=== PATIENT | male | born 2000 | race Caucasian/White ===

== ENCOUNTER → 2019-05-24 15:40 | Outpatient (CLI) | payer OTHER, SELFPAY ==
--- NOTE | 2019-05-24 15:49 | XR_ITS ---
XR knee LT 3V HISTORY: ITS.REASON: LT KNEE PAIN ORDERING PHYSICIAN: Ayesha Mabry APRN PATIENT AGE: 18 years COMPARISON: None FINDINGS: No fracture or dislocation. No lytic or blastic change. Normal mineralization. No significant arthritic changes evident. Ununited ossification centers present at the tibial tuberosity as a normal variant IMPRESSION: No acute finding
--- NOTE | 2019-05-24 15:49 | XR_ITS ---
XR knee RT 3V HISTORY: ITS.REASON: RT KNEE PAIN ORDERING PHYSICIAN: Ayesha Mabry APRN PATIENT AGE: 18 years COMPARISON: None FINDINGS: No fracture or dislocation. No lytic or blastic change. Normal mineralization. No significant arthritic changes evident. Ununited ossification center noted at the tibial tuberosity is a normal variant. IMPRESSION: No acute finding
== END ==
PROVIDERS: PCP Nurse Practitioner Family; Visit Provider Nurse Practitioner Family
DX: M25.562 Pain in left knee (principal); M25.561 Pain in right knee
CPT/HCPCS: 73562

== ENCOUNTER → 2020-01-24 08:04 | Outpatient (CLI) | payer OTHER, SELFPAY ==
--- NOTE | 2020-01-24 08:08 | US_ITS ---
PROCEDURE: US ABDOMEN LIMITED CLINICAL INDICATION: RUQ PAIN Right upper quadrant pain with nausea and vomiting COMPARISON: RUQ US RUQ-(ABD LTD)1ORGAN/QUAD/FU from 05/03/2017 FINDINGS: PANCREAS: Unremarkable. No obvious mass or abnormal fluid collection. No ductal dilatation LIVER: No focal liver lesions demonstrated. Homogeneous echogenicity. No intrahepatic biliary ductal dilatation evident. There is appropriate direction of blood flow within a non dilated portal vein RIGHT KIDNEY: Unremarkable. Normal size and echogenicity. No hydronephrosis GALLBLADDER: No gallstones, gallbladder wall thickening, pericholecystic fluid, or biliary dilatation. IMPRESSION: Unremarkable limited abdominal ultrasound as detailed above disc Dictated by: Ramiro Keane MD 01/24/2020 09:40 Electronically signed by Ramiro Keane MD in [place] 01/24/2020 09:40
== END ==
PROVIDERS: PCP Physician Assistant; Visit Provider Physician Assistant
DX: R10.11 Right upper quadrant pain (principal)
CPT/HCPCS: 76705

== ENCOUNTER 2020-04-26 19:48 | Emergency (ER) | payer OTHER, SELFPAY ==
[2020-04-26 19:49] VITALS: BP 135/79; PULSE 85; RESP 16; TEMP 36.8; O2SAT 95; BMI 28.1
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
[2020-04-26 20:51] VITALS: BP 137/73; PULSE 81; RESP 16; TEMP 36.7; O2SAT 96
== END 2020-04-26 20:54 | disposition home or self-care (01) ==
PROVIDERS: Emergency Provider Emergency Medicine; PCP Nurse Practitioner Family
DX: H16.133 Photokeratitis, bilateral (principal); F17.210 Nicotine dependence, cigarettes, uncomplicated
CPT/HCPCS: 99281

== ENCOUNTER → 2020-10-17 16:07 | Outpatient (CLI) | payer OTHER, SELFPAY ==
[2020-10-17 17:03] LABS: Basophils # 0.1 K/mm3 (0-0.2); Basophils % 0.9 % (0.1-2.0); Eosinophils # 0.3 K/mm3 (0.0-0.4); Eosinophils % 2.2 % (0.1-12.0); Hematocrit 50.6 % (42.0-52.0); Hemoglobin 17.4 g/dL (14.1-18.0); Lymphocytes # 3.8 K/mm3 (0.7-4.5); Lymphocytes % 30.5 % (10-50); Mean Corpuscular HGB Conc 34.5 g/dL (31.8-35.4); Mean Corpuscular Hemoglobin 29.6 pg (27.0-31.2); Mean Corpuscular Volume 85.9 fl (80-94); Mean Platelet Volume 8.4 fl (7.4-10.4); Monocytes # 0.8 K/mm3 (0.1-1.0); Monocytes % 6.4 % (1.7-9.3); Neutrophils # 7.4 K/mm3 (1.8-7.8); Platelet Count 250 K/mm3 (142-424); Red Blood Count 5.89 M/mm3 (4.60-6.20); Red Cell Distribution Width 13.3 % (11.5-17.5); White Blood Count 12.3 K/mm3 (4.8-10.8)
[2020-10-19 09:58] LABS: Covid-19 Nasal PCR Sendout Lex NOT DETECTED
== END ==
PROVIDERS: PCP Family Medicine; Visit Provider Family Medicine
DX: Z03.818 Encounter for observation for suspected exposure to other biological agents ruled out (principal)
CPT/HCPCS: 36415; 85025; 87275; 87276; U0004

== ENCOUNTER 2021-03-07 13:18 | Emergency (ER) | payer OTHER, SELFPAY ==
[2021-03-07 13:49] VITALS: BP 139/88; PULSE 83; RESP 19; TEMP 37.1; O2SAT 98; BMI 31.9
--- NOTE | 2021-03-07 14:10 | HMH.EDUTC ---
[facility] [place] Disposition Clinical Impression: Viral upper respiratory illness Disposition: Home, Self-Care Condition on Discharge: Good Instructions: Sore Throat, DI for Cough -- Adult, DI for Viral Upper Respiratory Infection -- Adult Additional Instructions: *Monitor Temp, Over the counter Motrin or Tylenol as directed/as needed Tylenol every 4 hours and Motrin every 6 hours (as long as your family doctor has told you that you can take it) for fever or pain. and straight to ER if unable to lower temp less than 101.0 after medication given *Warm salt water gargles may help to soothe the throat *Throat Lozenges *Warm fluids like tea with honey may help to soothe the throat *Sleep elevated *Humidifier/Vaporizer Make sure that you are drinking plenty of water with Taking Mucinex Your throat swab was sent for culture. Those results are typically sent to your primary care. Be sure to follow up in 2-3 days with your family doctor/primary care physician if no improvement so they can review those result and treat if necessary. If you don?t have a primary care doctor, I recommend you get one but in the mean time, you will have to return to a walk in clinic Follow up IMMEDIATELY for new or worsening symptoms or no Noticeable improvement over the next 48-72 hours. 911 for difficulty breathing or swallowing You were tested for today for COVID19 your test result should be back in the next 24-48 hours, you may call to the [facility] to see if your test results are back in the next 48 hours [phone] [facility] hours are 9am-9pm You was given a handout with instructions for Self Quarantine and Self isolation for while you wait on test results and what to do if they are positive If you are positive the Health Dept will be contacting you also Prescriptions: guaiFENesin [Mucinex 600mg tablet] 1 - 2 tab PO Q12H PRN #20 tab.er.12h PRN Reason: Congestion Transmission Status: Received by [id number] Referrals: Noe Cordoba MD [Primary Care Provider] - As needed Forms: Work/School Release Time of Disposition: 14:22 Medical Decision Making - Aryan Inquiry Pt receiving controlled substance: No Aryan was queried for this patient: No Vital Signs: 03/07/21 13:49 03/07/21 14:32 Temperature 98.8 F 98.8 F Temperature Source Tympanic Tympanic Pulse Rate 83 Pulse Rate [Right Brachial] 83 Respiratory Rate 19 19 Blood Pressure 139/88 Blood Pressure [Right Arm] 139/88 Blood Pressure Mean [Right Arm] 105 Blood Pressure Source Automatic Cuff Blood Pressure Source [Right Arm] Automatic Cuff Blood Pressure Position Sitting Blood Pressure Position [Right Arm] Sitting 02 Sat by Pulse Oximetry 98 Oxygen Delivery Method Room Air Room Air - Lab Data Lab results reviewed: Yes: I reviewed the patient's lab results. Lab Results 03/07/21 13:28: Strep Scn Rapid Clinic Negative Orders (Tests/Meds): ORDERS Category Date Time Status Covid-19 Nasal PCR ([facility]) Routine Lab 03/07/21 14:30 Received Strep Screen Confirmation Stat Micro 03/07/21 13:28 Received [facility] UTC HPI - General Stated complaint: sore throat, stomach pain Time Seen by Provider: 03/07/21 14:11 Mode of Arrival: Ambulatory Source of Information: Patient Limitations: No Limitations Description of Symptoms (Recalled from Triage Doc. by RN): Sore throat, chest tight, headache since last night HEENT Symptoms (Recalled from RN notes): Yes Resp Symptoms (Recalled from RN notes): No Skin Symptoms (Recalled from RN notes): No MS Symptoms (Recalled from RN notes): No Functional Status (Recalled from RN notes): wnl - History of Present Illness Provider Complaint: Patient states that he has been having sore throat and congestion along with headache feels like congestion is starting to move into his chest area States that today he was still feeling bad so he came in to get checked States that at times he is blowing out greenish colored mucous - Related Data Previous Rx's
[2021-03-07 14:32] VITALS: BP 139/88; PULSE 83; RESP 19; TEMP 37.1; O2SAT 98
[2021-03-07 14:37] LABS: UTC Strep Screen (Rapid) Negative (Negative)
== END 2021-03-07 14:37 | disposition home or self-care (01) ==
PROVIDERS: Emergency Provider Nurse Practitioner; PCP Family Medicine
DX: J06.9 Acute upper respiratory infection, unspecified (principal); F17.210 Nicotine dependence, cigarettes, uncomplicated; Z20.822 Contact with and (suspected) exposure to COVID-19
CPT/HCPCS: 87880; 99202; G0463; U0003

== ENCOUNTER → 2021-03-14 13:29 | Outpatient (CLI) | payer OTHER, SELFPAY | PROVIDERS: PCP Family Medicine; Visit Provider Family Medicine | DX: G47.30 Sleep apnea, unspecified (principal); R40.0 Somnolence; R06.83 Snoring; E66.9 Obesity, unspecified | CPT/HCPCS: 95806 ==

== ENCOUNTER 2021-04-30 14:28 | Emergency (ER) | payer OTHER, SELFPAY ==
[2021-04-30 14:35] VITALS: BP 148/96; PULSE 82; RESP 19; TEMP 36.8; O2SAT 96; BMI 32.5
[2021-04-30 14:50] VITALS: BP 148/96; PULSE 82; RESP 19; TEMP 36.8; O2SAT 96
--- NOTE | 2021-04-30 15:15 | HMH.EDUTC ---
[facility] [place] Clinical Impression: Gastroenteritis Disposition: Home, Self-Care Condition on Discharge: Good Instructions: Viral Gastroenteritis, DI for Viral Gastroenteritis -- Adult Additional Instructions: Drink plenty of fluids. Take tylenol or ibuprofen for pain or fever. Take the medications as directed. Follow up with your regular doctor. GO TO THE ER FOR ANY WORSENING SYMPTOMS Prescriptions: Ondansetron [Zofran 4mg ODT] 4 mg PO Q8HP PRN #12 tab.rapdis PRN Reason: Nausea Transmission Status: Received by [id number] Referrals: Noe Cordoba MD [Primary Care Provider] - Forms: Work/School Release Time of Disposition: 15:18 Medical Decision Making - Medical Records Medical records reviewed: No: I reviewed the patient's medical records. - Aryan Inquiry Pt receiving controlled substance: No Vital Signs: 04/30/21 14:35 04/30/21 14:50 Temperature 98.3 F 98.3 F Temperature Source Oral Oral Pulse Rate 82 Pulse Rate [Left] 82 Respiratory Rate 19 19 Blood Pressure 148/96 H Blood Pressure [Right Arm] 148/96 H Blood Pressure Mean [Right Arm] 113 02 Sat by Pulse Oximetry 96 [facility] [place] HPI - General Stated complaint: vomiting,nausea Time Seen by Provider: 04/30/21 15:15 Mode of Arrival: Ambulatory Source of Information: Patient Limitations: No Limitations Description of Symptoms (Recalled from Triage Doc. by RN): Pt states that he has been vomiting, stomach ache, chills and weak since last night. HEENT Symptoms (Recalled from RN notes): No Resp Symptoms (Recalled from RN notes): No Skin Symptoms (Recalled from RN notes): No MS Symptoms (Recalled from RN notes): No Functional Status (Recalled from RN notes): wnl - History of Present Illness Provider Complaint: He has been having n/v/d since yesterday. He denies abdominal pain. - Related Data Previous Rx's Medication Instructions Recorded guaiFENesin [Mucinex 600mg tablet] 1 - 2 tab PO Q12H PRN #20 03/07/21 tab.er.12h Ondansetron [Zofran 4mg ODT] 4 mg PO Q8HP PRN #12 tab.rapdis 04/30/21 Allergies Allergy/AdvReac Type Severity Reaction Status Date / Time No Known Allergies Allergy Verified 04/30/21 14:48 - Worker's Comp Is this a Worker's Comp case?: No [facility] History - Hepatitis A Screen Drug use history?: No High risk sexual behaviors?: No History of sexually transmitted infection?: No Currently employed?: No Childcare worker?: No Do you have indoor plumbing?: Yes Do you have electricity?: Yes Attestation statement:: This patient has been screened for Hepatitis A risk factors. I have reviewed the patient's past medical history: Yes Medical History: Denies:: Diabetes Mellitus Type 1, Diabetes Mellitus Type 2 Other Surgeries: Yes: No Previous Surgery Amputation: No Fractures: No - Social History Smoking Status: Current every day smoker Tobacco Type: cigarettes, smokeless tobacco # Packs/Day (cigarettes): 1 Alcohol Intake: never Alcohol Intake Frequency:: holidays/special occasions only Substance Use Type: denies use Occupational Status: other Housing: house Household Members: family Family Hx:: Non-contributory ROS Obtained: Yes All systems reviewed & no additional complaints - Constitutional Constitutional: Reports system reviewed and no additional complaints, except as docu - Eyes Eyes: Reports system reviewed and no additional complaints, except as docu - ENT Ears, Nose, Mouth, and Throat: Reports system reviewed and no additional complaints, except as docu - Cardiovascular Cardiovascular: Reports system reviewed and no additional complaints, except as docu - Respiratory Respiratory: Reports system reviewed and no additional complaints, except as docu - Gastrointestinal Gastrointestingal: Reports: system reviewed and no additional complaints, except as docu Physical Exam - General General appearance: alert, in no apparent distress - Head Head
== END 2021-04-30 15:19 | disposition home or self-care (01) ==
PROVIDERS: Emergency Provider Nurse Practitioner Family; PCP Family Medicine
DX: K52.9 Noninfective gastroenteritis and colitis, unspecified (principal)
CPT/HCPCS: 99202; G0463; U0003

== ENCOUNTER 2021-07-08 17:27 | Emergency (ER) | payer OTHER, SELFPAY ==
[2021-07-08 17:30] VITALS: BP 150/93; PULSE 113; RESP 18; TEMP 36.8; O2SAT 98; BMI 33.4
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
[2021-07-08 18:50] VITALS: BP 147/99; PULSE 98; RESP 18; TEMP 36.8; O2SAT 98
== END 2021-07-08 18:57 | disposition home or self-care (01) ==
PROVIDERS: Emergency Provider Emergency Medicine; PCP Family Medicine
DX: S39.012A Strain of muscle, fascia and tendon of lower back, initial encounter (principal); V86.95XA Unspecified occupant of 3- or 4- wheeled all-terrain vehicle (ATV) injured in nontraffic accident, initial encounter
CPT/HCPCS: 72131; 99282

== ENCOUNTER 2021-07-20 10:12 | Emergency (ER) | payer OTHER, SELFPAY ==
[2021-07-20 11:30] VITALS: BP 161/86; PULSE 72; RESP 20; TEMP 36.8; O2SAT 98; BMI 32.6
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
[2021-07-20 11:51] VITALS: BP 161/86; PULSE 72; RESP 20; TEMP 36.8; O2SAT 98
== END 2021-07-20 11:54 | disposition home or self-care (01) ==
PROVIDERS: Emergency Provider Nurse Practitioner Family; PCP Family Medicine
DX: U07.1 COVID-19 (principal); F17.210 Nicotine dependence, cigarettes, uncomplicated
CPT/HCPCS: 99202; G0463; U0003

== ENCOUNTER 2021-08-04 10:51 | Emergency (ER) | payer OTHER, SELFPAY ==
[2021-08-04 11:10] VITALS: BP 143/91; PULSE 94; RESP 18; TEMP 36.8; O2SAT 98; BMI 32.6
--- NOTE | 2021-08-04 12:01 | HMH.EDUTC ---
[facility] [place] Clinical Impression: Viral syndrome, Exposure to COVID-19 virus Disposition: Home, Self-Care Condition on Discharge: Good Instructions: DI for COVID-19 (Suspected or Confirmed ), Preventing the Spread of Coronavirus Discharge Instructions Additional Instructions: Drink plenty of fluids. Take tylenol or ibuprofen for pain or fever. Take the medications as directed. Follow up with your regular doctor. GO TO THE ER FOR ANY WORSENING SYMPTOMS Quarantine until you know the results of your covid-19 test. If it is positive, the health department should call you and give you further instructions about your length of Quarantine and other things. Notify your school or workplace of your results and follow their instructions regarding return to work/school. Prescriptions: Brompheniramine/Pseudoephed/Dm [Bromfed Dm Cough Syrup] 5 ml PO Q6HP PRN #240 ml PRN Reason: Cough Transmission Status: Received by [facility] Ondansetron [Zofran 4mg ODT] 4 mg PO DAILYP PRN #12 tab PRN Reason: Nausea Transmission Status: Received by [facility] Referrals: Noe Cordoba MD [Primary Care Provider] - Forms: Work/School Release Time of Disposition: 12:09 Medical Decision Making - Medical Records Medical records reviewed: No: I reviewed the patient's medical records. - Aryan Inquiry Pt receiving controlled substance: No Vital Signs: 08/04/21 11:10 08/04/21 12:27 Temperature 98.3 F 98.3 F Temperature Source Oral Oral Pulse Rate 94 H Pulse Rate [Apical] 94 H Respiratory Rate 18 18 Blood Pressure 143/91 H Blood Pressure [Right Arm] 143/91 H Blood Pressure Mean [Right Arm] 108 Blood Pressure Source Automatic Cuff Blood Pressure Source [Right Arm] Automatic Cuff Blood Pressure Position Sitting Blood Pressure Position [Right Arm] Sitting 02 Sat by Pulse Oximetry 98 Oxygen Delivery Method Room Air Room Air [facility] [place] - General Stated complaint: sore throat soz, headache, congestion Time Seen by Provider: 08/04/21 12:02 Mode of Arrival: Ambulatory Source of Information: Patient Limitations: No Limitations Description of Symptoms (Recalled from Triage Doc. by RN): covid test, headache, cough, fatigue, soa HEENT Symptoms (Recalled from RN notes): No Resp Symptoms (Recalled from RN notes): Yes Skin Symptoms (Recalled from RN notes): No MS Symptoms (Recalled from RN notes): No Functional Status (Recalled from RN notes): na - History of Present Illness Provider Complaint: He states that for the past 3 days he has felt bad. He has had a cough, chest congestion, sore scratchy sore throat, and he feels bad. He has not been vaccinated against covid-19. - Related Data Previous Rx's Medication Instructions Recorded guaiFENesin [Mucinex 600mg tablet] 1 - 2 tab PO Q12H PRN #20 03/07/21 tab.er.12h Ondansetron [Zofran 4mg ODT] 4 mg PO Q8HP PRN #12 tab.rapdis 04/30/21 Ibuprofen [Ibuprofen 800mg 800 mg PO TIDP PRN #20 tab 07/08/21 Tablet] Brompheniramine/Pseudoephed/Dm 5 ml PO Q6HP PRN #240 ml 08/04/21 [Bromfed Dm Cough Syrup] Ondansetron [Zofran 4mg ODT] 4 mg PO DAILYP PRN #12 tab 08/04/21 Allergies Allergy/AdvReac Type Severity Reaction Status Date / Time No Known Allergies Allergy Verified 04/30/21 14:48 - Worker's Comp Is this a Worker's Comp case?: No [facility] History - Hepatitis A Screen Drug use history?: No High risk sexual behaviors?: No History of sexually transmitted infection?: No Currently employed?: No Childcare worker?: No Do you have indoor plumbing?: Yes Do you have electricity?: Yes Attestation statement:: This patient has been screened for Hepatitis A risk factors. I have reviewed the patient's past medical history: Yes Medical History: Denies:: Diabetes Mellitus Type 1, Diabetes Mellitus Type 2 Other Surgeries: Yes: No Previous Surgery Amputation: No Fractures: No - Social History Smoking Statu
[2021-08-04 12:27] VITALS: BP 143/91; PULSE 94; RESP 18; TEMP 36.8; O2SAT 98
== END 2021-08-04 12:28 | disposition home or self-care (01) ==
PROVIDERS: Emergency Provider Nurse Practitioner Family; PCP Family Medicine
DX: B34.9 Viral infection, unspecified (principal); Z20.822 Contact with and (suspected) exposure to COVID-19
CPT/HCPCS: 99202; C9803; G0463; U0003; U0005

== ENCOUNTER 2023-12-19 14:01 | Outpatient (CLI) | payer BC, SELFPAY ==
--- NOTE | 2023-12-19 14:07 | XR_ITS ---
FINAL REPORT CLINICAL HISTORY: chronic RT KNEE PAIN, old softball injury FINDINGS: Right knee Three views were obtained. There is no acute fracture or dislocation. The joint spaces appear normal. No joint effusion is identified. No soft tissue abnormality is identified. IMPRESSION: No acute process. Reviewed, Interpreted and Dictated by Noe Navarro MD Transcribed by Brianne Quigley Authenticated and . [facility]
== END 2023-12-19 23:59 ==
LOC: RAD 14:03
PROVIDERS: PCP Physician Assistant; Visit Provider Physician Assistant
DX: M25.561 Pain in right knee (principal)
CPT/HCPCS: 73562

== ENCOUNTER 2024-02-10 16:47 | Outpatient (POV) | payer BC, SELFPAY | END 2024-02-10 23:59 | disposition home or self-care (01) | LOC: SC 16:48 | PROVIDERS: PCP Physician Assistant; Visit Provider Dermatology | DX: Z00.00 Encounter for general adult medical examination without abnormal findings (principal) ==

== ENCOUNTER 2024-12-29 19:46 | Emergency (ER) | payer BC, SELFPAY ==
[2024-12-29 19:52] VITALS: BP 164/100; PULSE 80; RESP 16; TEMP 36.8; O2SAT 98; BMI 37.5
[2024-12-29 20:20] LABS: Microscopic, Urine URINE MICROSCOPIC (MICROSCOPIC)
[2024-12-29 20:29] LABS: Appearance,Urine CLEAR (Clear); Bilirubin,Urine Negative (Negative); Blood, Urine Negative (Negative); Color,Urine YELLOW (Yellow); Glucose,Urine (UA) Negative (Negative); Ketones,Urine Negative (Negative); Leukocyte Esterase,Urine Negative (Negative); Nitrate,Urine Negative (Negative); PH,Urine 6.5 (5.0-8.5); Protein,Urine Negative (Negative); Specific Gravity, Urine 1.025 (1.005-1.030); Urobilinogen,Urine 0.2 EU/dl (0.2)
--- NOTE | 2024-12-29 20:29 | ED_ITS ---
Discharge Plan Disposition Patient Disposition: Home, Self-Care Chief Complaint: Urogenital-Male Prescriptions Prescriptions: No Action No Known Home Medications Referrals Follow up/Referrals: Tho Bailey MD [Primary Care Provider] - See instructions Activity Restrictions/Add. Instructions Additional Instructions/Restrictions: Follow-up with your urologist regarding this visit to the emergency department. Talk to them about intervention regarding spermatocele and need for decompressing cyst given amount of pain likely due to pressure. Call your family doctor to establish care for this visit to the emergency department and schedule follow-up within 48 hours to ensure improvement. If you have any worsening of your condition or any other concerning signs or symptoms, return to the emergency department or your primary care doctor for further evaluation. Clinical Impressions Clinical Impression: Spermatocele, Right testicular pain Instructions Patient Instructions: DI for Urinary Tract Infection (UTI), DI for Urinary Tract Infection in Children Print Language Print Language: Maori Discharge ED Provider: José Maneul [facility] HPI General Chief complaint: Urogenital-Male Stated complaint: right leg and groin painful and swollen Time Seen by Provider: 12/29/24 20:00 Mode of Arrival: Ambulatory Source of Information: Patient Limitations: No Limitations Description of Symptoms (Recalled from ER Triage Doc. by RN): Pt presents for evaluation of right scrotum pain x 1 month. History of Present Illness HPI narrative: Please note that above description of symptoms, in this electronic medical record under categorization of recalled from ER triage doctor by RN are reflective of an initial nursing assessment, however, is not reflective of my full history and physical exam that was personally taken and clarified. Consequentially, this preceding description of symptoms, which may include the patient's categorized chief complaint in the EMR, do not reflect my personal clinical impression, and the ultimate description of history of present illness and patient stated complaints should be deferred to this section of the note. Unless stated otherwise or congruent with this section of the note, additional signs, symptoms, or incongruence should be interpreted as inaccurate with my clinical impression. Related Data Home Medications ?Medication ?Instructions ?Recorded ?Confirmed No Known Home Medications 12/29/24 12/29/24 Allergies Allergy/AdvReac Type Severity Reaction Status Date / Time No Known Allergies Allergy Verified 04/30/21 14:48 [facility] Disclaimer: The information contained in this section may have been updated after the patient was seen, as this information can be updated by other users. Social History Smoking Status: Current every day smoker tobacco type: cigarettes packs per day: 1 and smokeless tobacco second hand exposure: No alcohol intake: never substance use type: denies use current occupational status: other Travel in the last 8 weeks: None household members: family housing: house Have you lived/traveled outside US in past 30 days?: No Contact w/someone who lives/traveled outside US past 30 days?: No Exposure to someone with infectious disease in past 14 days?: No Do you have a fever (greater than 100.4 F or 38 C)?: No Have you tested positive for COVID-19: No Exposed to someone with COVID-19 in past 14 days?: No Do you have a sore throat?: No Do you have a cough?: No Do you have any weakness?: No Do you have any diarrhea?: No Are you experiencing any unusual bleeding?: No Do you have any muscle aches/pain?: No Do you have any abdominal pain?: No Are you experiencing loss of taste or smell?: No Other Medical History Have you received the Flu Vaccine for this season: No Have you received the Pneumonia Vaccine: No ROS Obtained: Yes All systems reviewed & no additional complaints except as documented Physical Exam General General appearance: alert Head Head exam: atraumatic and normocephalic Eye Eye exam: Present normal appearance, PERRL and EOMI Neck Neck exam: Present normal inspection, full ROM and trachea midline Respiratory Respiratory exam: Absent respiratory distress, wheezes, stridor, accessory muscle use or prolonged expiratory phase Cardiovascular Cardiovascular exam: Present other (Pulses equal symmetric in upper and lower extremities) Abdominal Exam Abdominal exam: Present soft; Absent distention, tenderness or pulsatile mass Extremities Exam Extremities exam: Absent edema Neurological Exam Neurological exam: Present alert, oriented X3 and CN II-XII intact; Absent motor sensory deficit Skin Skin exam: Present warm and dry; Absent diaphoresis or erythema Medical Decision Making Medical Records Medical records reviewed: Yes I reviewed the patient's medical records. Screening: Per USPSTF and CDC recommendations, given the prevalence of disease in our region, it is our hospital?s policy to screen for HIV and viral Hepatitis for all patients aged 18 and over and those with ongoing risk factors. Aryan Inquiry Pt receiving controlled substance: No Aryan was queried for this patient: No Vital Signs: 12/29/24 19:52 12/29/24 20:30 Temperature 98.3 F Temperature Source Oral Pulse Rate 83 Pulse Rate [Right] 80 Respiratory Rate 16 Blood Pressure 134/85 Blood Pressure [Right Arm] 164/100 H Blood Pressure Mean [Right Arm] 121 Blood Pressure Source [Right Arm] Automatic Cuff Blood Pressure Position [Right Arm] Sitting 02 Sat by Pulse Oximetry 98 98 Oxygen Delivery Method Room Air Room Air Lab Data Lab Results 12/29/24 19:58: Urine Color Yellow, Urine Appearance Clear, Urine pH 6.5, Ur Specific [place] 1.025, Urine Protein Negative, Urine Glucose (UA) Negative, Urine Ketones Negative, Urine Blood Negative, Urine Nitrate Negative, Urine Bilirubin Negative, Urine Urobilinogen 0.2, Ur Leukocyte Esterase Negative, Urine RBC Occasional, Urine WBC Occasional, Urine Mucus 1+ Orders (Tests/Meds): ORDERS Category Date Time Status POCUS Point of Care (ER Only) Stat Exams 12/29/24 20:25 Ordered Urinalysis and Microscopic Stat Lab 12/29/24 19:58 Completed Medical Decision Narrative: 24-year-old male presenting with right testicular pain. Patient had vasectomy in June 2024. States that he has been having pain since that time. Went and saw the urologist last week states that he was told I have a cyst and to use heating pads, Tylenol and Motrin. Patient states that pain has not gotten any better, so came in for further evaluation. No dysuria, hematuria, acute pain, but there is some swelling. Pain is constant, radiates up into his abdomen near his umbilicus. History was obtained via conversation with patient and . On arrival, patient hemodynamically stable, alert, oriented x4, appropriate, GCS 15, moving all extremities spontaneously, pupils equal and reactive to light. Full physical exam performed and significant for uncomfortable appearing male who is in no acute distress. Right testicle is mildly tender, he does have large cystic structure posterior to his right testicle. Reflex intact, right testicle is not tender in itself. No overlying scrotal changes. No evidence of hernia. Differential includes spermatocele, hydrocele, abscess, orchitis, testicular abscess, urinary tract infection, among others. Patient was given Tylenol and Motrin for symptomatic management and correction of underlying abnormalities. Workup independently interpreted and significant for no infectious urine. Bedside jzqon-et-orch ultrasound was performed, patient has normal bilateral testicles with normal blood flow. He does have 2 to 2.5 cm cystic structure posterior to his right testicle consistent with likely hydrocele. Quiet, anechoic, no evidence of surrounding fat stranding. Small hydrocele on the right as well. Given patient presentation, workup, history, this most likely represents spermatocele. Because patient at baseline without signs or symptoms of clinical decompensation, deemed appropriate for discharge. Results were relayed to patient who voiced understanding and were agreeable to outpatient management and follow up. I discussed my clinical impression with patient and answered all questions. At this time, the evidence for any other entities in the differential is insufficient to warrant any further testing or ED observation. This was explained as well. Advisory was given that persistent or worsening symptoms require further evaluation. I confirmed the understanding of this discussion. [employer] disclaimer Much of this encounter note is an electronic equipment operating engineer spoken language to printed text. Electronic equipment operating engineer of the spoken language may permit errors. Although I have reviewed the note, some errors may still exist. Procedures Limited Ultrasound Indication:: Limited testicular ultrasound Indication: Testicular pain, scrotal pain Identified structures: Location: Bilateral testicles Findings: Normal bilateral testicles with normal flow. Patient does have small hydrocele on the right. He also has large spermatocele posterior to the right testicle just over 2 cm. Impression: Normal testicular ultrasound Images were saved to permanent archive The study was technically adequate Testicular/scrotal CPT Codes: 77649-70 This study was performed by me, and I personally interpreted all images/videos. Based on my clinical judgement, these images were adequate and did not necessitate further imaging. Critical Care Critical Care Time Critical Care Time: No
[2024-12-29 20:30] VITALS: BP 134/85; PULSE 83; O2SAT 98
[2024-12-29 20:48] LABS: Mucus,Urine 1+ /lpf; RBC,Urine Occasional #/hpf (0-3); WBC,Urine Occasional #/hpf (0-3)
[2024-12-29] MEDS: ACETAMINOPHEN 500MG TAB 1000 MG PO (21:15)
[2024-12-29] MEDS: IBUPROFEN 600 MG TABLET PO (21:16)
[2024-12-29 21:19] VITALS: BP 124/78; PULSE 72; RESP 16; TEMP 36.6; O2SAT 98
== END 2024-12-29 21:20 | disposition home or self-care (01) ==
PROVIDERS: Emergency Provider Emergency Medicine; PCP Internal Medicine Adolescent Medicine
DX: N50.811 Right testicular pain (principal); N43.40 Spermatocele of epididymis, unspecified; R22.31 Localized swelling, mass and lump, right upper limb; N50.89 Other specified disorders of the male genital organs; F17.210 Nicotine dependence, cigarettes, uncomplicated
CPT/HCPCS: 81001; 99283

== ENCOUNTER 2025-02-26 01:33 | Emergency (ER) | payer BC, SELFPAY ==
--- NOTE | 2025-02-26 01:35 | ECG_ITS ---
APPROVED REPORT Exam: Resting ECG HR:84 bpm ECG Measurements Heart Rate 84 AXES OK 157 P 52 QRSd 86 QRS 15 QT 350 T 9 QTc 391 Conclusion SINUS RHYTHM WITH SINUS ARRHYTHMIA LOW QRS VOLTAGE IN PRECORDIAL LEADS [QRS DEFLECTION < 1.0 mV IN CHEST LEADS] BORDERLINE ECG INTERPRETATION BASED ON A DEFAULT AGE OF 40 YEARS UNCONFIRMED REPORT Electronically signed by : JAVIER BERNAL, 02/27/2025 03:39:25
[2025-02-26 01:38] VITALS: BP 134/101; PULSE 102; RESP 16; TEMP 36.6; O2SAT 97; BMI 37.5
--- NOTE | 2025-02-26 01:38 | XR_ITS ---
PROCEDURE INFORMATION: Exam: XR Chest Exam date and time: 02/26/2025 1:54 AM Age: 24 years old Clinical indication: Sternal or substernal pain; Additional info: Chest pain TECHNIQUE: Imaging protocol: Radiologic exam of the chest. Views: 1 view. COMPARISON: CT ABDOMEN PELVIS W CON 08/17/2019 5:48 PM FINDINGS: Lungs: Unremarkable. No consolidation. Pleural spaces: Unremarkable. No pleural effusion. No pneumothorax. Heart/Mediastinum: Unremarkable. No cardiomegaly. Vasculature: Unremarkable. Bones/joints: Unremarkable. IMPRESSION: No acute findings.
--- NOTE | 2025-02-26 01:40 | ED_ITS ---
Discharge Plan Disposition Patient Disposition: Home, Self-Care Prescriptions Prescriptions: No Action No Known Home Medications Referrals Follow up/Referrals: Provider,Referral, MD [Primary Care Provider] - See instructions Activity Restrictions/Add. Instructions Additional Instructions/Restrictions: Please follow-up with your primary care provider. Please return to the emergency department if you develop any new or worsening symptoms or become concerned for your health. Clinical Impressions Clinical Impression: Chest pain Print Language Print Language: Slovenian Discharge ED Provider: Pastor Man General Adult HPI General Chief complaint: Chest Pain Stated complaint: chest pain Time Seen by Provider: 02/26/25 01:35 History of Present Illness HPI narrative: 24-year-old male with history of hypertension presents for chest pain and hypertension. Reports chest pain is centrally located, sharp, worse with movement. Denies any shortness of breath cough fever or recent illness. Denies any abdominal pain. Reports he has had episodes like this in the past. He is concerned that his blood pressure was high at home, up to the 160s systolic. He is on lisinopril for blood pressure. Denies any history of blood clots, no recent surgery or immobilization. Related Data Home Medications ?Medication ?Instructions ?Recorded ?Confirmed No Known Home Medications 12/29/24 12/29/24 Allergies Allergy/AdvReac Type Severity Reaction Status Date / Time No Known Allergies Allergy Verified 04/30/21 14:48 [facility] Disclaimer: The information contained in this section may have been updated after the patient was seen, as this information can be updated by other users. Social History Smoking Status: Current every day smoker tobacco type: cigarettes packs per day: 1 and smokeless tobacco second hand exposure: No alcohol intake: never substance use type: denies use current occupational status: other Travel in the last 8 weeks: None household members: family housing: house Other Medical History Have you received the Flu Vaccine for this season: No Have you received the Pneumonia Vaccine: No ROS Obtained: Yes All systems reviewed & no additional complaints except as documented Physical Exam General General appearance: alert and in no apparent distress Head Head exam: atraumatic and normocephalic Eye Eye exam: Present normal appearance, PERRL and EOMI ENT ENT exam: Present normal oropharynx and normal external ear exam Neck Neck exam: Present normal inspection and full ROM Chest Chest inspection: Present normal inspection and symmetric chest wall rise; Absent tenderness Respiratory Respiratory exam: Present normal lung sounds bilaterally; Absent respiratory distress Cardiovascular Cardiovascular exam: Present regular rate and normal rhythm Abdominal Exam Abdominal exam: Present soft; Absent distention, tenderness or guarding Extremities Exam Extremities exam: Present normal inspection; Absent edema or joint swelling Back Exam Back exam: Present normal inspection; Absent tenderness Neurological Exam Neurological exam: Present alert and oriented X3; Absent motor sensory deficit Psychiatric Psychiatric exam: Present normal affect and normal mood Skin Skin exam: Present warm, dry and normal color Lymphatic Lymphatic Findings: no adenopathy Medical Decision Making Medical Records Medical records reviewed: Yes I reviewed the patient's medical records. Screening: Per USPSTF and CDC recommendations, given the prevalence of disease in our region, it is our hospital?s policy to screen for HIV and viral Hepatitis for all patients aged 18 and over and those with ongoing risk factors. Aryan Inquiry Pt receiving controlled substance: No Aryan was queried for this patient: No Vital Signs: 02/26/25 01:38 02/26/25 01:43 Temperature 97.9 F Temperature Source Oral Pulse Rate 84 Pulse Rate [Right Radial] 102 H Respiratory Rate 16 Blood Pressure [Right Arm] 134/101 H Blood Pressure Mean [Right Arm] 112 Blood Pressure Source [Right Arm] Automatic Cuff Blood Pressure Position [Right Arm] Supine 02 Sat by Pulse Oximetry 97 Oxygen Delivery Method Room Air Lab Data Lab results reviewed: Yes I reviewed the patient's lab results. Lab Results 02/26/25 01:35: WBC 13.8 H, RBC 5.74, Hgb 17.7, Hct 50.7, MCV 88.3, MCH 30.8, MCHC 34.9, RDW 13.4, Plt Count 273, MPV 10.3, Neut % (Auto) 62.7, Lymph % (Auto) 28.3, [place] % (Auto) 7.1, Eos % (Auto) 0.7, Baso % (Auto) 0.5, Neut # (Auto) 8.7 H, Lymph # (Auto) 3.9, [place] # (Auto) 1.0, Eos # (Auto) 0.1, Baso # (Auto) 0.1, Sodium 141, Potassium 3.6, Chloride 100, Carbon Dioxide 31 H, Anion Gap 13.6, BUN 12, Creatinine 0.90, Estimated Creat Clear 192, Estimated GFR 102, Est GFR ( Amer) 123, Glucose 106 H, Calcium 9.3, Total Bilirubin 0.7, AST 50, ALT 106 H, Alkaline Phosphatase 91, Troponin I 0.02, Total Protein 8.4 H, Albumin 4.7, Globulin 3.7 H, Albumin/Globulin Ratio 1.3 02/26/25 01:35 02/26/25 01:35 Orders (Tests/Meds): ED MEDICATIONS Discontinued Medications Generic Name Dose Route Start Last Admin Trade Name Freq PRN Reason Stop Dose Admin Acetaminophen 1,000 mg 02/26/25 01:38 02/26/25 01:45 Acetaminophen 500mg Tab PO 02/26/25 01:39 1,000 mg ONCE ONE Administration Belladonna Alkaloids 60 ml 02/26/25 01:38 02/26/25 01:45 Belladonna Alkaloids 60 Ml Ml PO 02/26/25 01:39 60 ml ONCE ONE Administration Ketorolac Tromethamine 30 mg 02/26/25 01:38 02/26/25 01:45 Ketorolac 30mg/Ml Vial IV 02/26/25 01:39 30 mg ONCE ONE Administration ORDERS Category Date Time Status CXR --portable [XR chest portable] Stat Exams 02/26/25 01:38 Taken CBC w/Auto Diff [Complete Blood Count Auto Diff] Stat Lab 02/26/25 01:35 Completed CMP [Comprehensive Metabolic Panel] Stat Lab 02/26/25 01:35 Completed Troponin I Q3H Lab 02/26/25 01:35 Completed Troponin I Q3H Lab 02/26/25 04:45 Ordered ECG Data Tracing #1: I reviewed this ECG and interpreted as documented below: Normal sinus rhythm, rate of 84, no concerning ischemic changes, no evidence of arrhythmia. ECG initial impression date: 02/26/25 ECG initial impression time: 01:35 HEART Score History (anamnesis): Slightly suspicious ECG: Normal Age: <45 years Risk factors: 1-2 risk factors Troponin: </= normal limit HEART Score: 1 Medical Decision Narrative: 24-year-old male history of hypertension presents for a few hours of central chest pain. History was obtained via interactive discussion with patient, family, chart review. On arrival, patient is [afebrile, hemodynamically stable, satting appropriately, alert, oriented x4, GCS 15], moving all extremities spontaneously. Full physical exam performed and significant for clear lungs bilaterally. EKG unremarkable. Differential includes but is not limited to musculoskeletal chest pain, GERD, pleurisy, PE, ACS. Low concern for ACS given age and normal EKG. Patient is PERC negative and does not require D-dimer to rule out PE.. Patient was given Tylenol, GI cocktail, Toradol for symptomatic management and correction of underlying abnormalities. Workup initiated including CBC CMP troponin chest x-ray EKG. On re-evaluation, patient is chest pain-free after GI cocktail. Laboratory workup independently interpreted by me and significant for mild leukocytosis, negative initial troponin, no significant electrolyte derangement. Imaging independently interpreted by me and significant for clear lungs bilaterally without focal opacity. See radiology read for full review of final results. EKG independently interpreted by me and significant for normal sinus rhythm. Second opponent was considered, but deemed unnecessary due to no significant concern for ACS given history and exam.. Given patient history, exam and workup, patient's presentation most likely represents noncardiac chest pain. Patient discharged in stable condition with return precautions.. Procedures Risk/Benefits of Procedure(s) Were Explained: Yes Critical Care Critical Care Time Critical Care Time: No
[2025-02-26 01:43] VITALS: PULSE 84
[2025-02-26] MEDS: ACETAMINOPHEN 500MG TAB 1000 MG PO (01:45)
[2025-02-26] MEDS: BELLADONNA ALKALOIDS 60 ML ML PO (01:45)
[2025-02-26] MEDS: KETOROLAC 30MG/ML VIAL 30 MG IV (01:45)
[2025-02-26 01:47] LABS: Basophils # 0.1 K/mm3 (0-0.2); Basophils % 0.5 % (0.1-2.0); Eosinophils # 0.1 K/mm3 (0.0-0.4); Eosinophils % 0.7 % (0.1-12.0); Hematocrit 50.7 % (42.0-52.0); Hemoglobin 17.7 g/dL (14.1-18.0); Lymphocytes # 3.9 K/mm3 (0.7-4.5); Lymphocytes % 28.3 % (10-50); Mean Corpuscular HGB Conc 34.9 g/dL (31.8-35.4); Mean Corpuscular Hemoglobin 30.8 pg (27.0-31.2); Mean Corpuscular Volume 88.3 fl (80-94); Mean Platelet Volume 10.3 fl (7.4-10.4); Monocytes % 7.1 % (1.7-9.3); Neutrophils # 8.7 K/mm3 (1.8-7.8); Neutrophils % 62.7 % (37.0-80.0); Nucleated Red Blood Cells # 0 10^3/uL; Nucleated Red Blood Cells % 0 %; Platelet Count 273 K/mm3 (142-424); Red Blood Count 5.74 M/mm3 (4.60-6.20); Red Cell Distribution Width 13.4 % (11.5-17.5); Red Cell Distribution Width-SD 43.1 fL; White Blood Count 13.8 K/mm3 (4.8-10.8)
[2025-02-26 01:57] LABS: Alanine Aminotransferase 106 U/L (12-78); Albumin Level 4.7 g/dl (3.5-5.0); Albumin/Globulin Ratio 1.3 (1.1-1.8); Alkaline Phosphatase 91 U/L (38-126); Anion Gap 13.6 mEq/L (5-15); Aspartate Amino Transferase 50 U/L (17-59); Bilirubin,Total 0.7 mg/dl (0.2-1.3); Blood Urea Nitrogen 12 mg/dl (9-20); Calcium 9.3 mg/dl (8.4-10.2); Carbon Dioxide 31 mmol/L (22.0-30.0); Chloride 100 mmol/L (98-107); Creatinine Clearance Estimated 192 mL/min (50-200); Estimated Glomerular Filt Rate 102 ml/min (>60); GFR (African American) 123 ML/MIN (>60); Globulin 3.7 g/dL (1.3-3.2); Glucose 106 mg/dl (74-100); Potassium 3.6 mmoL/L (3.5-5.1); Sodium 141 mmol/L (136-145); Total Protein,Serum 8.4 g/dl (6.3-8.2)
[2025-02-26 02:09] LABS: Troponin I 0.02 ng/ml (0.00-0.034)
[2025-02-26 02:17] VITALS: BP 128/75; PULSE 74; RESP 16; TEMP 36.6; O2SAT 98
[2025-02-26 02:20] VITALS: BP 128/75; PULSE 78; RESP 14; TEMP 36.9; O2SAT 100
== END 2025-02-26 02:22 | disposition home or self-care (01) ==
PROVIDERS: Emergency Provider Emergency Medicine
DX: R07.89 Other chest pain (principal); I10 Essential (primary) hypertension; D72.829 Elevated white blood cell count, unspecified; F17.210 Nicotine dependence, cigarettes, uncomplicated; F17.220 Nicotine dependence, chewing tobacco, uncomplicated
CPT/HCPCS: 71045; 80053; 84484; 85025; 93005; 96374; 99284; J1885

== ENCOUNTER 2025-05-02 16:28 | Emergency (ER) | payer BC, SELFPAY ==
--- OUTSIDE RECORDS SUMMARY | 2024-11-19 12:15 | XMS_ITS ---
[facility] [address] [facility] [address] [place] [id number] Care Team Providers Care Claim Approver Name Role Phone Ralph Wooten Primary Care Provider [phone] Valerie Loyola Unavailable [phone] Allergies No Known Allergies REASON FOR VISIT ear pressure Social History Tobacco Use: Social History Observation Description Date Details (start date - stop date) Current Smoker NA - NA CURRENT TOBACCO USE: Question Answer Notes Are you a: current smoker How often do you smoke cigarettes? every day How many cigarettes a day do you smoke? 6-10 Encounters Encounter Location Date Provider Diagnosis [facility] [address] [facility] [address] [place] [id number] 11/19/2024 Valerie Fiore Plan Of Treatment No Information Progress Notes * TAMRA, JacobDOB:[birth year] (24 yo M)Acc No.[id number]:11/19/2024 Progress Notes Patient: Kane DELONG Provider: CAROL Lopez :2000 A ge:24 Y S ex:Male Date:11/19/2024 Address:[address] [place], [place] [address] [facility] Pcp:Ralph Wooten Subjective: * Chief Complaints: * [...] * Vitals: Assessment: Plan: * Treatment: * Billing Information: * Visit Code: * Procedure Codes: * Electronic signature of CAROL Fox on 05/02/2025 at 04:45 PM EDT Sign off status: Pending * Provider: CAROL Lopez Date: 0 11/19/2024 Generated for Alexis patel/Rhea/Shanta on: 0 05/02/2025 04:45 PM EDT History and Physical Notes * HPI (History of Present Illness) Category Sub-Category Detail Notes Category Not es ENT/respiratory ear pain pressure
--- OUTSIDE RECORDS SUMMARY | 2024-11-30 06:30 | XMS_ITS ---
Author Organization [facility] Address [address] [facility] [address] [place] [id number] Care Team Providers Care Campus Director Name Role Phone Ralph Wooten Primary Care [...] Problem Status W/U Status Risk Notes Problem [id number] Allergic rhinitis, unspecified seasonality, unspecified trigger (J30.9) Active confirmed Problem [id number] Morbid obesity (E66.01) Active confirmed Vital Signs Blood pressure systolic 132 mm Hg 11/30/19 25 Blood pressure diastolic 88 mm Hg 025 Heart Rate 90 /min 11/30/2024 Height 66 in 11/30/2024 Weight 248.2 lbs 11/30/2024 BMI 40.06 kg/m2 11/30/2024 Encounters Encounter Location Date Provider Diagnosis [facility] [address] [facility] [address] [place] [id number] 11/30/2024 Ralph Wooten Otalgia, bilateral H92.03 ; [...] via phone to repo rt progress, Reason: Progress Notes * Kane CLAYTONDOB:[birth year] (24 yo M)Acc No.[id number]:11/30/2024 Progress Notes Patient: Kane DELONG Provider: Don Wooten M.D. :2000 A ge:24 Y S ex:Male Date:11/30/2024 Address:[address] [place] [address] Subjective: * Chief Complaints: * 1 . [...] Examination: E NT/Respiratory: General Appearance: N AD. Eyes: P ERRLA, sclera clear. Ears: a uditory canals normal bilaterally, TM's WNL. Nose : nares patent, pale, edematous turbinates. Oral cavity : n o erythema or exudate seen on pharynx. Neck : n o cervical lymphadenopathy. Heart : R RR, normal S1 S2. Lungs: c lear to auscultation bilaterally. Assessment: * [...] v ia phone to report progress * Billing Information: * Visit Code: 50896 Office Visit, Est Pt., Level 3. * Procedure Codes: * Electronic signature of Deja Wooten MD on 05/02/2025 at 04:46 PM EDT Sign off status: Pending * Provider: Don Wooten M.D. Date: 0 11/30/2024 Generated for Harshi ng/Rhea/eTransmitting on: 0 05/02/2025 04:46 PM EDT History and Physical Notes * [...]
--- OUTSIDE RECORDS SUMMARY | 2025-01-26 11:15 | XMS_ITS ---
Author Organization [facility] Address [address] [facility] [address] [phone] Care Team Providers Care Fermenter Name Role Phone Ralph Wooten Primary Care Provider Valerie Fiore Unavailable [phone] Allergies No Known Allergies Results Component Value [...] Interpretation: Performing Lab: Notes/Report: Test performed by [employer], [employer] [address] [place] [address] , [address], [place] [address] Edwin Farmer MD, Agent Contract Clerk CLIA: [id number] Sodium 140 135-145 mmol/L Potassium 3.7 3.5-5.3 [...] Interpretation: Performing Lab: Notes/Report: Test performed by [facility] [address] [place] [address] , [address], [place] [address] Edwin Farmer MD, Agent Contract Clerk CLIA: [id number] Hepatitis A Antibody, IgM Nonreactive Nonreactive Hepatitis B Core Antibody (HBcAb) IgM Nonreactive Nonreactive Hepatitis B Surface Antigen (HBsAg) Nonreactive Nonreactive Hepatitis C Antibody (HCV) IgG Nonreactive Nonreactive P-Lipid Panel Reviewed date:01/28/2025 12:36:04 PM Interpretation: Performing Lab: Notes/Report: Test performed by [facility] [address] [place] [address] , [address], [place] [address] Edwin Farmer MD, Agent Contract Clerk CLIA: [id number] Cholesterol 172 <200 mg/dL Triglycerides 340 <150 [...] Interpretation: Performing Lab: Notes/Report: Test performed by [employer], [employer] [address] [place] [address] , [address], [place] [address] Edwin Farmer MD, Agent Contract Clerk CLIA: [id number] TSH reflex to FT4 2.30 0.43-5.25 mU/L REASON FOR VISIT chest pains ,B/P high arms sore Medications Medication SIG (Take, Route, Frequency, Duration) Notes Start Date End Date Status Triamcinolone Acetonide 0.1 % 1 application Externally three times a day as needed Active Lisinopril 10 MG 1 tablet Orally Once a day for 30 day(s) 01/26/2025 Active Social History Tobacco Use: Social History Observation Description Date Details (start date - stop date) Current Smoker NA - NA CURRENT TOBACCO USE: Question Answer Notes Are you a: current smoker How often do you smoke cigarettes? every day How many cigarettes a day do you smoke? 6-10 Vital Signs Blood pressure systolic 152 mm Hg 01/27/20 25 Blood pressure diastolic 100 mm Hg 025 Heart Rate 94 /min 01/26/2025 Height 66 in 01/26/2025 Weight 246.8 lbs 01/26/2025 BMI 39.83 kg/m2 01/26/2025 Encounters Encounter Location Date Provider Diagnosis [facility] [address] [place], [place] [id number] 01/26/2025 Valerie Crowdy HBP (high blood pressure) I10 ; Elevated [...] 10 MG 1 tablet Orally Once a day for 30 day(s) 01/26/2025 Treatment Notes Assessment Notes [...] rt test results, Reason: Progress Notes * Kane CLAYTONDOB:[birth year] (24 yo M)Acc No.[id number]:01/26/2025 Progress Notes Patient: Kane DELONG Provider: CAROL Lopez :2000 A ge:24 Y S ex:Male Date:01/26/2025 Address:[address] [place] [address] Pcp:Ralph Wooten Subjective: * Chief Complaints: * [...] G eneral Examination: General Appearance: N AD. HEENT: u nremarkable. Oral cavity: n o lesions, mucosa moist and WNL, no erythema. Neck: s upple, no lymphadenopathy. Chest: n ormal shape and expansion. Heart: R SR. Lungs: c lear to auscultation. Abdomen: bowel sounds present, soft and nontender, no organomegaly or masses, no guarding or rigidity. Neurologic Exam: I ntact, gait normal. Skin: n ormal, no rash. Peripheral pulses: n ormal (2+) bilaterally. Extremities: n o leg edema. Assessment: * Assessment: [...] * Procedure Codes: 9 4760 [place], [address] CBC WITH AUTO DIFF, [address]46[address] VENIPUNCT, ROUTINE*, 3075F SYST BP GE 130 - 139MM HG, 3080F DIAST BP = 90 MM HG * Follow Up: v ia phone to report test results * Billing Information: * Visit Code: 95308 Office Visit, Est Pt., Level 4. * Procedure Codes: [address] [place]. [address] CBC WITH AUTO DIFF. 95204 VENIPUNCT, ROUTINE*. 3075F SYST BP GE 130 - 139MM HG. 3080F DIAST BP = 90 MM HG. * Electronic signature of CAROL Fox on 05/02/2025 at 04:45 PM EDT Sign off status: Pending * Provider: CAROL Lopez Date: 0 01/26/2025 Generated for Alexis patel/Rhea/eTransmitting on: 0 05/02/2025 04:45 PM EDT History [...]
--- NOTE | 2025-05-02 16:30 | ECG_ITS ---
APPROVED REPORT Exam: Resting ECG HR:89 bpm ECG Measurements Heart Rate 89 AXES [place] 159 P 42 QRSd 87 QRS 3 QT 368 T -4 QTc 414 Conclusion Sinus rhythm Electronically signed by : MOOSE PRADO, 05/02/2025 17:58:47
[2025-05-02 16:38] VITALS: BP 138/96; PULSE 90; RESP 19; TEMP 36.8; O2SAT 97; BMI 35.9
--- NOTE | 2025-05-02 16:40 | ED_ITS ---
Discharge Plan Disposition Patient Disposition: Home, Self-Care Prescriptions Prescriptions: No Action No Known Home Medications Referrals Follow up/Referrals: Valerie Fiore PA [Primary Care Provider, Medical] - See instructions Activity Restrictions/Add. Instructions Additional Instructions/Restrictions: As discussed, follow-up with your family doctor regarding a sleep study and scheduling a formal inpatient sleep study. Also follow-up with them regarding this chest pain. Continue taking your blood pressure medications as scheduled and be sure to stay plenty hydrated. Clinical Impressions Clinical Impression: Chest pain Print Language Print Language: Micronesian Discharge ED Provider: José Manuel Menchaca HPI General Chief Complaint: Chest Pain Stated Complaint: Chest Pain Time Seen by Provider: 05/02/25 16:33 History of Present Illness HPI narrative: Please note that above description of symptoms, in this electronic medical record under categorization of recalled from ER triage doctor by RN are reflective of an initial nursing assessment, however, is not reflective of my full history and physical exam that was personally taken and clarified. Consequentially, this preceding description of symptoms, which may include the patient's categorized chief complaint in the EMR, do not reflect my personal clinical impression, and the ultimate description of history of present illness and patient stated complaints should be deferred to this section of the note. Unless stated otherwise or congruent with this section of the note, additional signs, symptoms, or incongruence should be interpreted as inaccurate with my clinical impression. Related Data Home Medications ?Medication ?Instructions ?Recorded ?Confirmed No Known Home Medications 12/29/2412/18 Allergies Allergy/AdvReac Type Severity Reaction Status Date / Time No Known Allergies Allergy Verified 04/30/21 14:48 [facility] Disclaimer: The information contained in this section may have been updated after the patient was seen, as this information can be updated by other users. Social History Smoking Status: Current every day smoker tobacco type: cigarettes packs per day: 1 and smokeless tobacco second hand exposure: No alcohol intake: never substance use type: denies use current occupational status: other Travel in the last 8 weeks?: None household members: family housing: house Have you lived/traveled outside US in past 30 days?: No Contact w/someone who lives/traveled outside US past 30 days?: No Exposure to someone with infectious disease in past 14 days?: No Do you have a fever (greater than 100.4 F or 38 C)?: No Have you tested positive for COVID-19?: No Exposed to someone with COVID-19 in past 14 days?: No Do you have a sore throat?: No Do you have a cough?: No Do you have any weakness?: No Do you have any diarrhea?: No Are you experiencing any unusual bleeding?: No Do you have any muscle aches/pain?: No Do you have any abdominal pain?: No Are you experiencing loss of taste or smell?: No Other Medical History Have you received the Flu Vaccine for this season: No Have you received the Pneumonia Vaccine: No ROS Obtained: Yes All systems reviewed & no additional complaints except as documented Physical Exam General General appearance: alert Neck Neck exam: Present trachea midline Chest Chest inspection: Present normal inspection and symmetric chest wall rise Respiratory Respiratory exam: Present normal lung sounds bilaterally; Absent respiratory distress, wheezes, stridor, accessory muscle use or prolonged expiratory phase Cardiovascular Cardiovascular exam: Present regular rate, normal rhythm and other (Pulses equal and symmetric in upper and lower extremities) Extremities Exam Extremities exam: Absent edema Neurological Exam Neurological exam: Present alert, oriented X3 and CN II-XII intact Skin Skin exam: Present warm and dry; Absent cyanosis, diaphoresis or pallor HEART Score HEART Score HEART Score assessment performed?: Yes History (anamnesis): Slightly suspicious ECG: Normal Age: <45 years Risk factors: 1-2 risk factors Troponin: </= normal limit HEART Score: 1 Critical Care Critical Care Time Critical Care Time: No Medical Decision Making Medical Records Medical records reviewed: Yes I reviewed the patient's medical records. Aryan Inquiry Pt receiving controlled substance: No Aryan was queried for this patient: No Vital Signs Vital Signs: 05/02/25 16:38 05/02/25 17:00 05/02/25 17:30 Temperature 98.2 F Temperature Source Oral Pulse Rate 73 92 H Pulse Rate [Left Radial] 90 Respiratory Rate 19 16 22 Blood Pressure 119/74 145/88 H Blood Pressure [Right Arm] 138/96 H Blood Pressure Mean [Right Arm] 110 02 Sat by Pulse Oximetry 97 99 97 Oxygen Delivery Method Room Air Lab Data Labs: Lab Results 05/02/25 16:35: WBC 12.7 H, RBC 5.63, Hgb 17.7, Hct 50.1, MCV 89.0, MCH 31.4 H, MCHC 35.3, RDW 14.0, Plt Count 278, MPV 10.3, Neut % (Auto) 61.0, Lymph % (Auto) 29.9, [place] % (Auto) 6.9, Eos % (Auto) 0.9, Baso % (Auto) 0.5, Neut # (Auto) 7.8, Lymph # (Auto) 3.8, [place] # (Auto) 0.9, Eos # (Auto) 0.1, Baso # (Auto) 0.1, Sodium 137, Potassium 3.9, Chloride 102, Carbon Dioxide 28, Anion Gap 10.9, BUN 13, Creatinine 0.80, Estimated Creat Clear 212, Estimated GFR 117, Est GFR ( Amer) 141, Glucose 104 H, Calcium 9.6, Total Bilirubin 0.7, AST 46, ALT 90 H, Alkaline Phosphatase 110, Troponin I 0.02, Total Protein 7.9, Albumin 4.6, Globulin 3.3 H, Albumin/Globulin Ratio 1.4 05/02/25 16:35 05/02/25 16:35 Response Orders (Tests/Meds): ORDERS Category Date Time Status XR chest 2V Stat Exams 05/02/25 16:48 Completed Complete Blood Count Auto Diff Stat Lab 05/02/25 16:35 Completed Comprehensive Metabolic Panel Stat Lab 05/02/25 16:35 Completed HIV Combo Stat Lab 05/02/25 16:35 Received Hepatitis C Ab Qual. W/ RFX Stat Lab 05/02/25 16:35 Received Troponin I Q3H Lab 05/02/25 20:00 Ordered Troponin I Q3H Lab 05/02/25 23:00 Ordered Troponin I Stat Lab 05/02/25 16:35 Completed MDM Narrative Medical Decision Narrative: 24-year-old male presenting with multiple complaints. He states he was just driving about an hour prior to this visit when he started feeling warm, tingling in his extremities and chest pressure. Chest pressure did not radiate. No overt pain. No diaphoresis, shortness of breath, syncope, presyncope, and no radiation of the discomfort. Came in for further evaluation. Asymptomatic on my arrival. History was obtained via conversation with patient and . On arrival, patient hemodynamically stable, alert, oriented x4, appropriate, GCS 15, moving all extremities spontaneously, pupils equal and reactive to light. Full physical exam performed and significant for well-appearing male no acute distress. Speaking full sentences. Lungs are clear bilaterally anterior and posteriorly. Cardiac exam without murmurs gallops or rubs. No lower extremity edema. Upper extremity pulses intact and symmetric. Grossly neurologically intact and stating that he currently has no symptoms and feels well. Differential includes anxiety, panic, arrhythmia, vasovagal presyncope, metabolic abnormality, endocrinologic abnormality, among others. Patient was given p.o. challenge successfully for symptomatic management and correction of underlying abnormalities. Patient placed on continuous cardiac monitoring and continuous pulse ox with initial blood pressure 138/96, heart rate 90, saturation 97% on room air. Independent interpretation of EKG shows sinus rhythm 89 bpm with [place] 159, QRS 87, QTc 414. Normal axis no acute ischemic change. Nonspecific T wave changes. Workup independently interpreted and significant for mild leukocytosis 12.7, no relative elevated cell lines. Chemistry nonactionable, troponin negative. On independent interpretation of imaging, patient has no acute cardiopulmonary or airspace disease. See radiology read for full review of final results. Heart score of 1. On reevaluation, sitting comfortably still completely asymptomatic. Further conversation with patient regarding his sleep habits reveal that patient snores all night long, wakes himself up multiple times per night. Had a previous sleep study scheduled, never did the inpatient sleep study. I feel this is likely the source of his hypertension as well as his poor sleep. Could also be contributing to his chest discomfort if he has some degree of pulmonary hypertension. He was recommended that he follow-up with his family doctor in order to have formal sleep study scheduled and long-term sleep apnea risk for discussed with patient and his occluding pulmonary hypertension, heart failure, atrial fibrillation, stroke, among others. They voiced their understanding. Given patient presentation, workup, history, this most likely represents anxiety versus panic attack. I feel this is less likely be ACS or [place]. Patient 24 years old, no family history of young cardiac arrest, tingling in arms, feet, flushing feeling, followed by chest pain less consistent with acute coronary syndrome than it is with anxiety/panic. Workup also completely unremarkable. Because patient at baseline without signs or symptoms of clinical decompensation, deemed appropriate for discharge. Results were relayed to patient who voiced understanding and were agreeable to outpatient management and follow up. I discussed my clinical impression with patient and answered all questions. At this time, the evidence for any other entities in the differential is insufficient to warrant any further testing or ED observation. This was explained as well. Advisory was given that persistent or worsening symptoms require further evaluation. I confirmed the understanding of this discussion. Multiple Knife Edge Trimmer Operator disclaimer Much of this encounter note is an electronic twisting machine operator spoken language to printed text. Electronic twisting machine operator of the spoken language may permit errors. Although I have reviewed the note, some errors may still exist.
--- OUTSIDE RECORDS SUMMARY | 2025-05-02 16:46 | XMS_ITS | Data Portability ---
Author Organization [facility] - Alvarez reddy, [facility]OS[facility] Address [address] [place] [address] Assessment No assessment recorded. Plan of Treatment Reminders Order Date Submit Date Provider Last Modified By Organization Details Last Modified Time Details Appointments None recorded. Lab None recorded. Referral None recorded. Procedures None recorded. Surgeries None recorded. Imaging None recorded. Medication Orders acetaminoph en 300 mg-codeine 30 mg tablet 2023 024 [facility], [address], [address], 14:17:54 Patient TargetsNo targets recorded. Patient Instructions Encounter Date Encounter Id Patient Instructions Last Modified By Organization Details Last Modified Time 06/28/2024 [id number] I discussed vasectomy in great detail with him(and his partner if present) today. I emphasized the permanence of the procedure of voluntary sterilization. We discussed the potential failure rate and it was made clear that it would be required to determine that 2 consecutive semen specimens examined in this office should show no evidence of sperm before the procedure be declared successful and the patient can safely proceed with unprotected intercourse. We did discuss all potential risks and complications inherent with scrotal surgery and with this procedure. Specific instructions were given regarding post operative care and activity. Written materials were given to him as well as an additional source of information regarding the procedure and its risk and benefits. All questions were answered. He stated that he had full understanding of all that was discussed and he desires to proceed. Will do under LMAC Not available 06/28/2024 19:32:24 12/20/2024 [id number] benign nature of spermatoceles is discussed with him. No intervention is indicated. Recommend NSAIDs and warm compresses with pain. Not available 12/20/2024 20:00:43 Reason for Referral None Reported. Procedures Surgical History Date Name Laterality Status Provider Name and Address Organization Details Recorded Time 4 Vasectomy completed RIGO CONDE MD [address] [place] [address], [id number], [facility] 07/09/2024 14:16:44 vasectomy completed RIGO CONDE MD [address] [place] [address], [address] [place] [address], [facility] 12/20/2024 19:59:21 Wrist arthroscopy completed RIGO CONDE MD [address] [place] [address], [address] [place] [address], [facility] 06/28/2024 19:32:41 [facility] Teeth Extraction completed RIGO CONDE MD [address] [place] [address], [address] [place] [address] 06/28/2024 19:32:52 Imaging Results None recorded. Procedure Notes None recorded. Medical Equipment None Reported. Allergies No known drug allergies Medications Name Sig Start Date Stop Date Status Note LastModified by Organization Details LastModified Time acetaminophe n 300 mg-codeine 30 mg tablet Take 1 tablet every 6 hours by oral route as needed. 2023 active Not Available Not Available Not Avai lable Dupixent 300 mg/2 mL subcutaneous pen injector Inject by subcutaneou s route. active Not Available Not Available No t Available Vitals Date Recorded Body height Body mass index (BMI) Body weight Provider Name and Address Organization Details Last Updated DateTime 12/20/2024 170.18 cm 37.6 kg/m2 215303.17 g Chloe Chalres [facility] 12/20/2024 13:56:36 Date Recorded Body height Body mass index (BMI) Body weight Provider Name and Address Organization Details Last Updated DateTime 06/28/2024 170.18 cm 37.6 kg/m2 806571.17 g Chitra Arriaza [facility] 06/28/2024 09:17:45 Social History Question Answer Notes LastModified by Organizat ion Details LastModified Time Tobacco Smoking Status Current Every Day Smoker Chitra Arriaza [facility] 06/28/2024 09:18:43 What Is Your Relationship Status? Single Has A Permanent Baby Mom . 2 Sons And 1 Daughter, Ages 3, 2 And 6 Mos. Information not available 06/28/2024 Sex: Unknown Functional Status None recorded. Mental Status None recorded. Family History Relationship Description Onset Age of this Age Resolved Age Notes LastModified by Organization Details LastModified Time Unspecified Relation Diabetes mellitus [email or web address] Not available 2023 09:18:32 Medical History Condition Response Arthritis Y Asthma Y Sleep Apnea Y Past Encounters Encounter ID Performer Location Encounter Start Date Encounter Closed Date Diagnosis/Indication Diagnosis SNOMED-CT Code Diagnosis ICD10 Code Diagnosis Note [id number] RIGO CONDE MD UROLOGY [facility] [address] [place] [address] 06/28/2024 09:01:44 06/28/2024 09:47:18 Male sterilization 477281417 Z30.2 [id number] RIGO CONDE MD SURGERY SCHEDULE [address] [place] [address] 07/09/2024 12:39:14 07/09/2024 12:39:51 Male sterilization 229134268 Z30.2 [id number] RIGO CONDE MD UROLOGY [facility] [address] [place] [address] 12/20/2024 13:37:52 12/20/2024 14:22:11 Male sterilization 464222350 Z30.2 Pain in testicle 2908686 9 N50.819 Spermatocele 52023669 N4 3.41 Health Concerns Section Related Observation LastModified by Organization Detai ls LastModified Time None Recorded Concern Status LastModified by Organization Details LastModified Time None Recorded Advance Directives Directive None Recorded Payers Insurance Date Sequence Insurance Name Policy Number Policy Nunez Covered Member ID Nunez Member ID Guarantor Name 12/20/2024 1 [place] [id number] 1 Kane Barboza [id number] Kane Barboza 06/28/2024 1 [facility] [employer] [facility] (PPO) [id number] Kane Palacioscutt [id number] Kane Reddy Tamra 12/20/2024 1 [place] [id number] 2 Meng Trevino Tamra [id number] Kane Reddy Tamra Notes Date Note Type Note Provider Name and Address Organization Details Recorded Time 06/28/2024 text/html Kane is a 23 yo male here today for Vasectomy Consultation. He has 3 children. He desires no future children with his s.o and is interested in permanent sterilization.He denies any scrotal or testicular problems RIGO CONDE MD [address] [place] [address] [place], [address], [facility] 06/28/2024 19:33:59 12/20/2024 text/html Kane is a 24 yo male who returns 6 mos after vasectomy. He states he has right testicular pain that began 2 weeks ago after he was lifting an engine. It has hurt off and on since, but is improving. He has no urinary issues or concerns. RIGO CONDE MD [facility] [place], [address], [facility] 12/20/2024 20:01:16
--- OUTSIDE RECORDS SUMMARY | 2025-05-02 16:46 | XMS_ITS | Patient Health Record ---
Author Organization [facility] Address [address] [id number] Care Team Providers Care Casing Man Name Role Phone Ralph Wooten Primary Care Provider AnkitValerie louis Unavailable [phone] Allergies No Known Allergies Results Component Value [...] Interpretation: Performing Lab: Notes/Report: Test performed by [facility] [address] [place] [address] , [address], [place] [address] Edwin Farmer MD, Management Lecturer CLIA: [id number] Sodium 140 135-145 mmol/L Potassium 3.7 3.5-5.3 [...] Interpretation: Performing Lab: Notes/Report: Test performed by [facility] [address] [place] [address] [address], [place] [address] Edwin Farmer MD, Management Lecturer CLIA: [id number] Hepatitis A Antibody, IgM Nonreactive Nonreactive Hepatitis B Core Antibody (HBcAb) IgM Nonreactive Nonreactive Hepatitis B Surface Antigen (HBsAg) Nonreactive Nonreactive Hepatitis C Antibody (HCV) IgG Nonreactive Nonreactive P-Lipid Panel Reviewed date:01/28/2025 12:36:04 PM Interpretation: Performing Lab: Notes/Report: Test performed by [facility] [address] [place] [address] [address], [place] [address] Edwin Farmer MD, Management Lecturer CLIA: [id number] Cholesterol 172 <200 mg/dL Triglycerides 340 <150 [...] Interpretation: Performing Lab: Notes/Report: Test performed by [facility] [address] [facility] [address] , [address], [place] [address] Edwin Farmer MD, Management Lecturer CLIA: [id number] TSH reflex to FT4 2.30 0.43-5.25 mU/L Reason For Referral No Information Medications Medication SIG (Take, Route, Frequency, Duration) Notes Start Date End Date Status Triamcinolone Acetonide 0.1 % 1 application Externally three times a day as needed Active Wegovy 0.25 MG/0.5ML 0.5 mL Subcutaneous once a week for 30 days Dx of E66.01 01/27/2025 Active Lisinopril 20 MG 1 tablet Orally Once a day for 90 days 02/19/2025 Active Social History Tobacco Use: Social History [...] Problem Status W/U Status Risk Notes Problem 129702923 Morbid obesity (E66.01) Active confirmed Problem Otitis externa (0057144) Otitis externa (H60.90) Active confirmed Problem HBP - High blood pressure (91098714) HBP (high blood pressure) (I10) Active confirmed Problem 23649183 Hypersomnia (G47.10) Active confirmed Problem Obese class II (4014577743118 05) BMI 39.0-39.9,adult (Z68.39) Active confirmed Problem 475730907 Non morbid obesity (E66.9) Active confirmed Problem 04736325 Allergic rhinitis, unspecified seasonality, unspecified trigger (J30.9) Active confirmed Problem 115529954 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 Vital Signs Heart Rate 94 /min 01/26/2025 Blood pressure diastolic 100 mm Hg 01/26/2025 Height 66 in 01/26/2025 Blood pressure systolic 152 mm Hg 01/26/2025 Weight 246.8 lbs 01/26/2025 BMI 39.83 kg/m2 01/26/2025 Encounters Encounter Location Date Provider Diagnosis [facility] [address] [place], [place] [id number] 11/30/2024 Ralph Marion Otalgia, bilateral H92.03 ; Allergic rhinitis, unspecified seasonality, unspecified trigger J30.9 and Morbid obesity E66.01 [facility] [address] [place], [place] [id number] 01/26/2025 Valerie Crowdy HBP (high blood pressure) I10 ; Elevated liver enzymes R74.8 ; Chronic eczema L30.9 ; Chest pain, unspecified type R07.9 and Screening, lipid Z13.220 [facility] [address] [place], [place] [id number] 12/13/2024 Ralph Marion [facility] [address] [place], [place] [id number] 01/26/2025 Ralph Marion [facility] [address] [place], [place] [id number] 01/28/2025 Valerie Crowdy [facility] [address] [place], [place] [id number] 02/01/2025 Ralph Marion [facility] [address] [place], [place] [id number] 02/07/2025 Ralph Marion [facility] [address] [place], [place] [id number] 02/19/2025 Valerie Fiore HBP (high blood pressure) I10 [facility] [address] [facility] [id number] 04/05/2025 Ralph Wooten Assessments Encounter Date Diagnosis (ICD Code) Assessment Notes Treatment Notes Treatment Clinical Notes Section Notes 11/30/2024 Otalgia, bilateral (ICD-10 - H92.03) 11/30/2024 Allergic rhinitis, unspecified seasonality, unspecified trigger (ICD-10 - J30.9) 01/26/2025 Elevated liver enzymes (ICD-10 - R74.8) He never came back to get repeat labs. Will recheck liver and hepatitis profile. 01/26/2025 HBP (high blood pressure) (ICD-10 - I10) He has a family hx of HTN and most of his family takes lisinopril. Will start on lisinopril and he will monitor his BP at home and call in 1 week with readings. 02/19/2025 HBP (high blood pressure) (ICD-10 - I10) 01/26/2025 Chronic eczema (ICD-10 - L30.9) 11/30/2024 Morbid obesity (ICD-10 - E66.01) Medication treatment options discussed with patient. He will call his insurance provider and find out if bariatric services are a covered benefit 01/26/2025 Chest pain, unspecified type (ICD-10 - R07.9) Likely due to elevated BP. 01/26/2025 Screening, lipid (ICD-10 - Z13.220) Plan Of Treatment Pending Test Test Name Order Date Lipid Profile 10/29/2022 Hepatitis Panel 06/20/2021 TSH 10/29/2022 CMP 10/29/2022 CBC 10/29/2022 H-TSH 12/18/2023 H-Lipid Panel 12/18/2023 H-Liver Panel 06/20/2021 H-CMP 12/18/2023 Insurance Providers Payer Name Payer Address Payer Phone Subscriber Number Group Number Insured Name Patient Relationship to Insured Coverage Start Date Coverage End Date [employer] [address] [place] [address] [id number] Kane Hines Self - patient is the insured Medical (General) History Medical History History ICD Code Eczema Hypertension Surgical History Surgery Date(Month/Year) Vasectomy 2023
--- NOTE | 2025-05-02 16:48 | XR_ITS ---
PROCEDURE INFORMATION: Exam: XR Chest Exam date and time: 05/02/2025 5:05 PM Age: 24 years old Clinical indication: Pain; Chest pressure; Additional info: Chest pain, dizziness TECHNIQUE: Imaging protocol: Radiologic exam of the chest. Views: 2 views. COMPARISON: CR XR CHEST PORTABLE 02/26/2025 1:54 AM FINDINGS: Lungs: No evidence of airspace infiltrate. No pulmonary edema. Pleural spaces: No visible pleural effusion. No pneumothorax. Heart/Mediastinum: Cardiomediastinal silouhette is within normal limits. Bones/joints: No evidence of acute osseous abnormality. IMPRESSION: No acute findings.
[2025-05-02 16:59] LABS: Basophils # 0.1 K/mm3 (0-0.2); Basophils % 0.5 % (0.1-2.0); Eosinophils # 0.1 Kmm3 (0.0-0.4); Eosinophils % 0.9 % (0.1-12.0); Hematocrit 50.1 % (42.0-52.0); Hemoglobin 17.7 g/dL (14.1-18.0); Immature Granulocytes % 0.8 %; Lymphocytes # 3.8 K/mm3 (0.7-4.5); Lymphocytes % 29.9 % (10-50); Mean Corpuscular HGB Conc 35.3 g/dL (31.8-35.4); Mean Corpuscular Hemoglobin 31.4 pg (27.0-31.2); Mean Platelet Volume 10.3 fl (7.4-10.4); Monocytes # 0.9 K/mm3 (0.1-1.0); Monocytes % 6.9 % (1.7-9.3); Neutrophils # 7.8 K/mm3 (1.8-7.8); Nucleated Red Blood Cells # 0 10^3/uL; Nucleated Red Blood Cells % 0 %; Platelet Count 278 K/mm3 (142-424); Red Blood Count 5.63 M/mm3 (4.60-6.20); Red Cell Distribution Width-SD 45.1 fL; White Blood Count 12.7 K/mm3 (4.8-10.8)
[2025-05-02 17:00] VITALS: BP 119/74; PULSE 73; RESP 16; O2SAT 99
[2025-05-02 17:01] LABS: Albumin Level 4.6 g/dl (3.5-5.0); Chloride 102 mmol/L (98-107)
[2025-05-02 17:02] LABS: Potassium 3.9 mmoL/L (3.5-5.1); Sodium 137 mmol/L (136-145)
[2025-05-02 17:04] LABS: Alanine Aminotransferase 90 U/L (12-78); Anion Gap 10.9 mEq/L (5-15); Aspartate Amino Transferase 46 U/L (17-59); Blood Urea Nitrogen 13 mg/dl (9-20); Carbon Dioxide 28 mmol/L (22.0-30.0); Creatinine Clearance Estimated 212 mL/min (50-200); Estimated Glomerular Filt Rate 117 ml/min (>60); GFR (African American) 141 ML/MIN (>60)
[2025-05-02 17:05] LABS: Albumin/Globulin Ratio 1.4 (1.1-1.8); Alkaline Phosphatase 110 U/L (38-126); Bilirubin,Total 0.7 mg/dl (0.2-1.3); Calcium 9.6 mg/dl (8.4-10.2); Globulin 3.3 g/dL (1.3-3.2); Glucose 104 mg/dl (74-100); Total Protein,Serum 7.9 g/dl (6.3-8.2)
[2025-05-02 17:16] LABS: Troponin I 0.02 ng/ml (0.00-0.034)
[2025-05-02 17:30] VITALS: BP 145/88; PULSE 92; RESP 22; O2SAT 97
[2025-05-02 18:25] VITALS: BP 140/86; PULSE 89; RESP 15; TEMP 36.6; O2SAT 98
[2025-05-02 18:31] LABS: HIV Combo NEGATIVE (Negative)
[2025-05-02 18:37] LABS: Hepatitis C Ab Qual. W/ RFX NEGATIVE (Negative)
== END 2025-05-02 18:26 | disposition home or self-care (01) ==
PROVIDERS: Emergency Provider Emergency Medicine; PCP Physician Assistant
DX: R07.9 Chest pain, unspecified (principal); F17.210 Nicotine dependence, cigarettes, uncomplicated; Z11.59 Encounter for screening for other viral diseases; Z11.4 Encounter for screening for human immunodeficiency virus [HIV]
CPT/HCPCS: 71046; 80053; 80074; 84484; 85025; 87389; 93005; 99284

== ENCOUNTER → 2025-05-12 20:22 | Outpatient (CLI) | payer BC, SELFPAY ==
--- OUTSIDE RECORDS SUMMARY | 2024-11-30 06:30 | XMS_ITS ---
Author Organization [facility] Address [address] [facility] [address] [place] [id number] Care Team Providers Care Brand Recorder Name Role Phone Ralph Wooten Primary Care [...] W/U Status Risk Notes Problem Allergic rhinitis (94339097) Allergic rhinitis, unspecified seasonality, unspecified trigger (J30.9) Active confirmed Problem Morbid obesity (E66.01) Active confirmed Vital Signs Weight 248.2 lbs 11/30/2024 Blood pressure systolic 132 mm Hg 11/30/19 25 Blood pressure diastolic 88 mm Hg 025 Heart Rate 90 /min 11/30/2024 Height 66 in 11/30/2024 BMI 40.06 kg/m2 11/30/2024 Encounters Encounter Location Date Provider Diagnosis [facility] [address] [place] [id number] 11/30/2024 Ralph Wooten Otalgia, bilateral H92.03 ; [...] * Kane CLAYTONDOB:[birth year] (24 yo M)Acc No.[id number]:11/30/2024 Progress Notes Patient: Kane DELONG Provider: Don Wooten M.D. :2000 A ge:24 Y S ex:Male Date:11/30/2024 Address:[address] [place] [address] Subjective: * Chief Complaints: * 1 . [...] * Images: Billing Information: * Visit Code: 16985 Office Visit, Est Pt., Level 3. * Procedure Codes: * Electronic signature of Deja Wooten MD on 05/12/2025 at 08:27 PM EDT Sign off status: Pending * Provider: Don Wooten M.D. Date: 0 11/30/2024 Generated for Alexis patel/Rhea/Blazeitting on: 0 05/12/2025 08:27 PM EDT History and Physical Notes * [...]
--- OUTSIDE RECORDS SUMMARY | 2025-01-26 11:15 | XMS_ITS ---
Author Organization [facility] Address [address] [facility] [address] [id number] Care Team Providers Care Sausage Tier Name Role Phone Ralph Wooten Primary Care Provider Valerie Fiore Unavailable [phone] Allergies No Known Allergies Results Component Value [...] Interpretation: Performing Lab: Notes/Report: Test performed by [facility] [employer], [employer] [address] [place] [address] , [address], [place] [address] Edwin Farmer MD, Stave Saw Operator CLIA: [id number] Sodium 140 135-145 mmol/L Potassium 3.7 3.5-5.3 [...] Interpretation: Performing Lab: Notes/Report: Test performed by [employer] [address] [place] [address] , [address], [place] [address] Edwin Farmer MD, Stave Saw Operator CLIA: [id number] Hepatitis A Antibody, IgM Nonreactive Nonreactive Hepatitis B Core Antibody (HBcAb) IgM Nonreactive Nonreactive Hepatitis B Surface Antigen (HBsAg) Nonreactive Nonreactive Hepatitis C Antibody (HCV) IgG Nonreactive Nonreactive P-Lipid Panel Reviewed date:01/28/2025 12:36:04 PM Interpretation: Performing Lab: Notes/Report: Test performed by [employer] [address] [place] [address] , [address], [place] [address] Edwin Farmer MD, Stave Saw Operator CLIA: [id number] Cholesterol 172 <200 mg/dL Triglycerides 340 <150 [...] Interpretation: Performing Lab: Notes/Report: Test performed by [employer], [employer] [address] [place] [address] , [address], [place] [address] Edwin Farmer MD, Stave Saw Operator CLIA: [id number] TSH reflex to FT4 2.30 0.43-5.25 mU/L [...] [address] [place], [place] [id number] 01/26/2025 Valerie Fiore HBP (high blood pressure) [...] phone to repo rt test results, Reason: Progress Notes * ELISEO, KaneDOB:[birth year] (24 yo M)Acc No.[id number]:01/26/2025 Progress Notes Patient: Kane DELONG Provider: CAROL Lopez :2000 A ge:24 Y S ex:Male Date:01/26/2025 Address:[address] [place], [place] [phone] Pcp:Ralph Wooten Subjective: * Chief Complaints: * [...] Delia Wallace 01/26/2025 4:5 9:01 PM > MacarenaPandoreen Woodard 01/28/2025 12:35:53 PM > see TE Notes: [...] 126 >59 - mL/min/1.73m2 * Valerie Fiore 01/28/2025 12 :35:53 PM [...] Nonreactive Nonreactiv e - * Valerie Fiore 01/28/2025 12 :35:53 PM [...] * Procedure Codes: 9 4760 [place], [address] CBC WITH AUTO DIFF, 90091 VENIPUNCT, ROUTINE*, 3075F SYST BP GE 130 - 139MM HG, 3080F DIAST BP = 90 MM HG * Follow Up: v ia phone to report test results * Images: Billing Information: * Visit Code: 97370 Office Visit, Est Pt., Level 4. * Procedure Codes: [address] [place]. [address] CBC WITH AUTO DIFF. 21166 VENIPUNCT, ROUTINE*. 3075F SYST BP GE 130 - 139MM HG. 3080F DIAST BP = 90 MM HG. * Electronic signature of CAROL Fox on 05/12/2025 at 08:27 PM EDT Sign off status: Pending * Provider: CAROL Lopez Date: 0 01/26/2025 Generated for Alexis patel/Rhea/eTnoemysmitting on: 0 05/12/2025 08:27 PM EDT History [...]
--- OUTSIDE RECORDS SUMMARY | 2025-05-04 12:15 | XMS_ITS ---
Author Organization [facility] Address 1210 [facility] [address] [place] [id number] Care Team Providers Care Clock Repair Technician Name Role Phone Ralph Wooten Primary Care Provider [phone] Deo Valerie Fiore Unavailable [phone] Allergies No Known Allergies REASON FOR VISIT ER f/u sleep study [...] do you smoke? 6-10 Vital Signs Weight 234.4 lbs 05/04/2025 Blood pressure systolic 120 mm Hg 05/04/20 25 Blood pressure diastolic 70 mm Hg 025 Heart Rate 92 /min 05/04/2025 Height 66 in 05/04/2025 BMI 37.83 kg/m2 05/04/2025 Encounters Encounter Location Date Provider Diagnosis [place] [facility] [address] [place] [address] [place] [id number] 05/04/2025 Valerie Fiore Other chest pain R07 [...] like to get the sleep study first. Pending Test Test Name Order Date sleep study 05/04/2025 Next Appt Details Follow Up: via phone to repo rt test results, Reason: Progress Notes * Kane CLAYTONDOB:[birth year] (24 yo M)Acc No.[id number]:05/04/2025 Progress Notes Patient: Kane DELONG Provider: CAROL Lopez :2000 A ge:24 Y S ex:Male Date:05/04/2025 Address:[address] [place], [place] [id number] Pcp:Ralph Wooten Subjective: * Chief Complaints: * [...] 2. S noring I maging: sleep study Notes: He does not sleep well and would like something to help him sleep. He also struggles with anxiety but does not want to take something daily. Hydroxyzine would be a good choice, but would like to get the sleep study first. ?? * Follow Up: v ia phone to report test results * Images: Billing Information: * Visit Code: 06907 Office Visit, Est Pt., Level 4. * Procedure Codes: * Electronic signature of CAROL Fox on 05/12/2025 at 08:27 PM EDT Sign off status: Pending * Provider: CAROL Lopez Date: 05/04/2025 Generated for Polleverywherei ng/Faanhg/eTransmitting on: 05/12/2025 08:27 PM EDT History and Physical [...]
--- OUTSIDE RECORDS SUMMARY | 2025-05-12 20:27 | XMS_ITS | Data Portability ---
Author Organization [place] [facility] Address [address] [facility] [address] [place] [address] Assessment No assessment recorded. Plan of Treatment Reminders Order Date Submit Date Provider Last Modified By Organization Details Last Modified Time Details Appointments None recorded. Lab None recorded. Referral None recorded. Procedures None recorded. Surgeries None recorded. Imaging None recorded. Medication Orders acetaminoph en 300 mg-codeine 30 mg tablet 2023 024 [facility] 591, [address], [address], 14:17:54 Patient TargetsNo targets recorded. Patient Instructions Encounter Date Encounter Id Patient Instructions Last Modified By Organization Details Last Modified Time 06/28/2024 [id number] I discussed vasectomy in great detail with [...] under LMAC Not available 06/28/2024 19:32:24 12/20/2024 [id number] benign nature of spermatoceles is discussed with him. No intervention is indicated. Recommend NSAIDs and warm compresses with pain. Not available 12/20/2024 20:00:43 Reason for Referral None Reported. Procedures Surgical History Date Name Laterality Status Provider Name and Address Organization Details Recorded Time Vasectomy completed RIGO CONDE MD [address] [place] [address], [address] [place] [address], [facility] 07/09/2024 14:16:44 vasectomy completed RIGO CONDE MD [address] [place] [address], [address] [place] [address], [facility] 12/20/2024 19:59:21 Wrist arthroscopy completed RIGO CONDE MD [address] [place] [address], [address] [place] [address] 06/28/2024 19:32:41 Garrett Teeth Extraction completed RIGO CONDE MD [address] [place] [address], [address] [place] [address] 06/28/2024 19:32:52 Imaging Results None recorded. Procedure [...] Updated DateTime 12/20/2024 170.18 cm 37.6 kg/m2 492435.17 g Chloe Charles [facility] 12/20/2024 13:56:36 Date Recorded Body height Body mass index (BMI) Body weight Provider Name and Address Organization Details Last Updated DateTime 06/28/2024 170.18 cm 37.6 kg/m2 647073.17 g Chitra Arriaza [facility] 06/28/2024 09:17:45 Social History Question Answer Notes LastModified by Organizat ion Details LastModified Time Tobacco Smoking Status Current Every Day Smoker Chitra Sofiya [facility] 06/28/2024 09:18:43 What Is Your Relationship Status? [...] SNOMED-CT Code Diagnosis ICD10 Code Diagnosis Note [id number] [facility]IG[facility] CONDE [facility] [address] [place] [address] 06/28/2024 09:01:44 06/28/2024 09:47:18 Male sterilization 819778889 Z30.2 [id number] RIGO CONDE MD SURGERY SCHEDULE [address] [place] [address] 07/09/2024 12:39:14 07/09/2024 12:39:51 Male sterilization 594752977 Z30.2 [id number] RIGO CONDE MD UROLOGY [facility] [address] [place] [address] 12/20/2024 13:37:52 12/20/2024 14:22:11 Male sterilization 714331069 Z30.2 Pain in testicle 9744979 9 N50.819 Spermatocele 45274859 N4 3.41 Health Concerns Section Related Observation LastModified by Organization Detai ls LastModified Time None Recorded Concern Status LastModified by Organization Details LastModified Time None Recorded Advance Directives Directive None Recorded Payers Insurance Date Sequence Insurance Name Policy Number Policy Nunez Covered Member ID Nunez Member ID Guarantor Name 12/20/2024 1 [place] ([facility]) [id number] 1 Kane Barboza [id number] Kane Barboza 06/28/2024 1 [facility] (PP[facility]) [id number] Kane Reddy Tamra [id number] Kane Reddy Tamra 12/20/2024 1 [place] [facility] [place] [id number] Meng Trevino Tamra [id number] Kane Reddy Tamra Notes Date Note Type Note Provider Name and Address Organization Details Recorded Time 06/28/2024 text/html Kane is a 23 yo male here today for Vasectomy Consultation. He has 3 children. He desires no future children with his s.o and is interested in permanent sterilization.He denies any scrotal or testicular problems RIGO CONDE MD [address] [place] [address], [phone], [facility] 06/28/2024 19:33:59 12/20/2024 text/html Kane is a 24 yo male who returns 6 mos after vasectomy. He states he has right testicular pain that began 2 weeks ago after he was lifting an engine. It has hurt off and on since, but is improving. He has no urinary issues or concerns. RIGO CONDE MD [address] [place] [address], [phone], [facility] 12/20/2024 20:01:16
--- OUTSIDE RECORDS SUMMARY | 2025-05-12 20:28 | XMS_ITS | Patient Health Record ---
Author Organization [facility] Address [address] [place] [address] [id number] Care Team Providers Care Office Receptionist Name Role Phone Ralph Wooten Primary Care Provider [phone] AnkitValerie louis Unavailable [phone] Allergies No Known Allergies Results Component Value [...] Interpretation: Performing Lab: Notes/Report: Test performed by [facility] [employer] [address] [place] [address] , [address], [place] [address] Edwin Farmer MD, [employer] CLIA: [id number] Sodium 140 135-145 mmol/L Potassium 3.7 3.5-5.3 [...] Interpretation: Performing Lab: Notes/Report: Test performed by [facility] [address] [place] [address] [address], [place] [address] Edwin Farmer MD, [employer] CLIA: [id number] Hepatitis A Antibody, IgM Nonreactive Nonreactive Hepatitis B Core Antibody (HBcAb) IgM Nonreactive Nonreactive Hepatitis B Surface Antigen (HBsAg) Nonreactive Nonreactive Hepatitis C Antibody (HCV) IgG Nonreactive Nonreactive P-Lipid Panel Reviewed date:01/28/2025 12:36:04 PM Interpretation: Performing Lab: Notes/Report: Test performed by [facility] [address] [place] [address] [address], [place] [address] Edwin Farmer MD, [employer] CLIA: [id number] Cholesterol 172 <200 mg/dL Triglycerides 340 <150 [...] Interpretation: Performing Lab: Notes/Report: Test performed by [facility] [address] [place] [address] , [address], [place] [address] Edwin Farmer MD, [employer] CLIA: [id number] TSH reflex to FT4 2.30 0.43-5.25 mU/L [...] Problem Status W/U Status Risk Notes Problem Morbid obesity (879842141) Morbid obesity (E66.01) Active confirmed Problem Otitis externa (5640498) Otitis externa (H60.90) Active confirmed Problem HBP - High blood pressure (61686115) HBP (high blood pressure) (I10) Active confirmed Problem Hypersomnia (95419458) Hypersomnia (G47.10) Active confirmed Problem Obese class II (249953559526951 ) BMI 39.0-39.9,adult (Z68.39) Active confirmed Problem Obesity (796477975) Non morbid obesity (E66.9) Active confirmed Problem Allergic rhinitis (40752089) Allergic rhinitis, unspecified seasonality, unspecified trigger (J30.9) Active confirmed Problem Lesion of ulnar nerve (448427343) 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 Vital Signs Heart Rate 92 /min 05/04/2025 Blood pressure diastolic 70 mm Hg 05/04/2025 Height 66 in 05/04/2025 Blood pressure systolic 120 mm Hg 05/04/2025 Weight 234.4 lbs 05/04/2025 BMI 37.83 kg/m2 05/04/2025 Encounters Encounter Location Date Provider Diagnosis [facility] [address] [place], [place] [id number] 11/30/2024 Rlaph [place] Otalgia, bilateral H92.03 ; Allergic rhinitis, unspecified seasonality, unspecified trigger J30.9 and Morbid obesity E66.01 [facility] [address] [place], [place] [id number] 01/26/2025 Valerie Crowdy HBP (high blood pressure) I10 ; Elevated liver enzymes R74.8 ; Chronic eczema L30.9 ; Chest pain, unspecified type R07.9 and Screening, lipid Z13.220 [facility] [address] [place], [place] [id number] 05/04/2025 Valerie Crowdy Other chest pain R07 .89 and Snoring R06.83 [facility] [address] [place], [place] [id number] 12/13/2024 Ralph [place] [facility] [address] [place] [id number] 01/26/2025 Ralph [place] [facility] [address] [place], [place] [id number] 01/28/2025 Valerie Crowdy [facility] [address] [place], [place] [id number] 02/01/2025 Ralph [place] [facility] [address] [place], [place] [id number] 02/07/2025 Ralph [place] [facility] [address] [place], [place] [id number] 02/19/2025 Valerie Fiore HBP (high blood pressure) I10 [facility] [address] [place], [place] [id number] 04/05/2025 Ralph [place] [facility] [address] [place], [place] [id number] 05/03/2025 Ralph [place] Assessments Encounter Date Diagnosis (ICD Code) Assessment [...] HBP (high blood pressure) (ICD-10 - I10) 05/04/2025 Snoring (ICD-10 - R06.83) He does not sleep well and would like something to help him sleep. He also struggles with anxiety but does not want to take something daily. Hydroxyzine would be a good choice, but would like to get the sleep study first. 05/04/2025 Other chest pain (ICD-10 - R07.89) Reviewed ER note and all testing came back normal. Will get in hospital sleep study. May need to see cardiology, but patient does not want to pursue that at this time. 11/30/2024 Morbid obesity (ICD-10 - E66.01) Medication treatment options discussed with patient. He will call his insurance provider and find out if bariatric services are a covered benefit 01/26/2025 Chronic eczema (ICD-10 - L30.9) 01/26/2025 Chest pain, unspecified type (ICD-10 - R07.9) Likely due to elevated BP. 01/26/2025 Screening, lipid (ICD-10 - Z13.220) Plan Of Treatment Pending Test Test Name Order Date Lipid Profile 10/29/2022 Hepatitis Panel 06/20/2021 TSH 10/29/2022 CMP 10/29/2022 sleep study 05/04/2025 CBC 10/29/2022 H-TSH 12/18/2023 H-Lipid Panel 12/18/2023 H-Liver Panel 06/20/2021 H-CMP 12/18/2023 Insurance Providers Payer Name Payer Address Payer Phone Subscriber Number Group Number Insured Name Patient Relationship to Insured Coverage Start Date Coverage End Date [employer] [facility] [address] [place] [address] [id number] Kane Hines Self - patient is the insured Medical (General) History Medical History History ICD Code Eczema Hypertension Surgical History Surgery Date(Month/Year) Vasectomy 2023
== END ==
LOC: SL 20:25
PROVIDERS: PCP Physician Assistant; Visit Provider Physician Assistant
DX: G47.33 Obstructive sleep apnea (adult) (pediatric) (principal); G47.36 Sleep related hypoventilation in conditions classified elsewhere; G47.61 Periodic limb movement disorder
CPT/HCPCS: 95810

== ENCOUNTER 2025-10-14 10:56 | Outpatient (CLI) | payer BC, SELFPAY ==
--- OUTSIDE RECORDS SUMMARY | 2024-11-19 11:15 | XMS_ITS ---
Author Organization [facility] Address [address] [facility] [address] [facility] [address] [place] [id number] Care Team Providers Care Program Coordinator For Residence Life Name Role Phone Ralph Wooten Primary Care Provider [phone] Valerie Loyola Unavailable [phone] Allergies No Known Allergies REASON FOR VISIT ear pressure Social History Tobacco Use: Social History Observation Description Date Details (start date - stop date) Current Smoker NA - NA CURRENT TOBACCO USE: Question Answer Notes Are you a: current smoker How often do you smoke cigarettes? every day How many cigarettes a day do you smoke? 6-10 Encounters Encounter Location Date Provider Diagnosis [facility] [address] [facility] [address] [facility] [address] [place] [id number] 11/19/2024 Valerie Fiore Plan Of Treatment Next Appt Details Provider Name:Valerie Butt y, 10/14/2025 01:40:00 PM, [address] [facility] [address] [facility], [address], [place], [place], [id number], Progress Notes * Kane CLAYTONDOB:[birth year] (25 yo M)Acc No.[id number]:11/19/2024 Progress Notes Patient: Kane DELONG Provider: CAROL Lopez :2000 A ge:24 Y S ex:Male Date:11/19/2024 [address] [facility] [address] [facility] [facility] [id number] Pcp:Ralph Wooten Subjective: * Chief Complaints: * 1 . Ear pressure. * HPI: E NT/respiratory: 24 year old male presents with c/o ear pain p ressure. * ROS: D ERMATOLOGY: no R anuradha. n o H sindhu. G ASTROENTEROLOGY: no N ausea. n o V omiting. n o D iarrhea.? U ROLOGY: no D ifficulty urinating. n o B lood in urine. * Medical History: E czema , Hypertension. * Family History: F ather: alive 41 yrs. M other: alive 41 yrs. 1 brother(s) - healthy. 2 son(s) - healthy. . * Social History: C URRENT TOBACCO USE: Yes A re you a: c urrent smoker, H ow often do you smoke cigarettes? e very day, H ow many cigarettes a day do you smoke? 6 -10. A lcohol: yes. * Allergies: N .K.D.A. Objective: * Vitals: Assessment: Plan: * Treatment: * Images: Billing Information: * Visit Code: * Procedure Codes: * Electronic signature of CAROL Fox on 10/14/2025 at 11:01 AM EST Sign off status: Pending * Provider: CAROL Lopez Date: 0 11/19/2024 Generated for Alexis patel/Rhea/Blazeitting on: 12/14/2024 11:01 AM EST History and Physical Notes * HPI (History of Present Illness) Category Sub-Category Detail Notes Category Not es ENT/respiratory ear pain pressure
--- OUTSIDE RECORDS SUMMARY | 2024-11-30 05:30 | XMS_ITS ---
Author Organization [facility] Address [address] [facility] [address] [place] [id number] Care Team Providers Care Engineering Production Worker Name Role Phone Ralph Wooten Primary Care Provider Allergies No Known Allergies REASON FOR VISIT earache Medications Medication SIG (Take, Route, Frequency, Duration) Notes Start Date End Date Status Fluticasone Propionate 50 MCG/ACT 1 spray in each nostril Nasally Twice a day 11/30/2024 Active Social History Tobacco Use: Social History Observation Description Date Details (start date - stop date) Current Smoker NA - NA CURRENT TOBACCO USE: Question Answer Notes Are you a: current smoker How often do you smoke cigarettes? every day How many cigarettes a day do you smoke? 6-10 Problems Problem Type SNOMED Code ICD Code Onset Dates Problem Status W/U Status Risk Notes Problem Allergic rhinitis (81263557) Allergic rhinitis, unspecified seasonality, unspecified trigger (J30.9) Active confirmed Problem Morbid obesity (211088882) Morbid obesity (E66.01) Active confirmed Vital Signs Weight 248.2 lbs 11/30/2024 Blood pressure systolic 132 mm Hg 11/30/19 25 Blood pressure diastolic 88 mm Hg 025 Heart Rate 90 /min 11/30/2024 Height 66 in 11/30/2024 BMI 40.06 kg/m2 11/30/2024 Encounters Encounter Location Date Provider Diagnosis [place] [facility] [address] [place] [address] [place] [id number] 11/30/2024 Ralph Wooten Otalgia, bilateral H92.03 ; Allergic rhinitis, unspecified seasonality, unspecified trigger J30.9 and Morbid obesity E66.01 Assessments Encounter Date Diagnosis (ICD Code) Assessment Notes Treatment Notes Treatment Clinical Notes Section Notes 11/30/2024 Otalgia, bilateral (ICD-10 - H92.03) 11/30/2024 Allergic rhinitis, unspecified seasonality, unspecified trigger (ICD-10 - J30.9) 11/30/2024 Morbid obesity (ICD-10 - E66.01) Medication treatment options discussed with patient. He will call his insurance provider and find out if bariatric services are a covered benefit Plan Of Treatment Medication Medication Name Sig Start Date Stop Date Notes Fluticasone Propionate 50 MCG/ACT 1 spray in each nostril Nasally Twice a day 11/30/2024 Treatment Notes Assessment Notes Morbid obesity Medication treatment options discussed with patient. He will call his insurance provider and find out if bariatric services are a covered benefit Next Appt Details Follow Up: via phone to repo rt progress, Reason: Provider Name:Valerie rush, 10/14/2025 01:40:00 PM, [address] [facility] 36 [facility], [address], [place], [place], [id number], Progress Notes * TAMRA, KaneDOB:[birth year] (25 yo M)Acc No.[id number]:11/30/2024 Progress Notes Patient: Kane DELONG Provider: Don Wooten M.D. :2000 A ge:24 Y S ex:Male Date:11/30/2024 Address:[address] [place], [place] [phone] Subjective: * Chief Complaints: * 1 . Earache. * HPI: E NT/respiratory: 24 year old male presents with c/o ear pain f or 1 month P t complains of bilateral ear pain for a while . Pt states it feels like there is something down in there and his ears pop at times. * ROS: D ERMATOLOGY: no R anuradha. n o H sindhu. G ASTROENTEROLOGY: no N ausea. n o V omiting. U ROLOGY: no D ifficulty urinating. n o B lood in urine. * Medical History: E czema , Hypertension. * Surgical History: D enies Past Surgical History. * Hospitalization/Major Diagno stic Procedure: D enies Past Hospitalization. * Family History: F ather: alive 41 yrs. M other: alive 41 yrs. 1 brother(s) - healthy. 2 son(s) - healthy. . * Social History: C URRENT TOBACCO USE: Yes A re you a: c urrent smoker, H ow often do you smoke cigarettes? e very day, H ow many cigarettes a day do you smoke? 6 -10. A lcohol: yes. * Medications: D iscontinued Losartan Potassium 50 MG Tablet 1 tab(s) orally once a day , Discontinued Dupixent 200 MG/1.14ML Solution Prefilled Syringe 1.14 mL subcutaneously every 2 weeks , Discontinued Triamcinolone Acetonide 0.1 % Cream 1 application Externally three times a day as needed , Discontinued Losartan Potassium 25 MG Tablet 1 tablet Orally Once a day , Medication List reviewed and reconciled with the patient * Allergies: N .K.D.A. Objective: * Vitals: W t:248.2, Temp:98.0, BP:132/88, HR:90, Nurse:virgen, Ht: 66, BMI:40.06. * Examination: E NT/Respiratory: General Appearance: N AD. E yes: P ERRLA, sclera clear. E ars: a uditory canals normal bilaterally, TM's WNL. N ose : nares patent, pale, edematous turbinates. O ral cavity : n o erythema or exudate seen on pharynx. N edwige : n o cervical lymphadenopathy. H eart : R RR, normal S1 S2. L ungs: c lear to auscultation bilaterally. Assessment: * Assessment: 1. O talgia, bilateral - H92.03 (Primary) 2 . A llergic rhinitis, unspecified seasonality, unspecified trigger - J30.9 3 . M orbid obesity - E66.01 ? Plan: * Treatment: 2. M orbid obesity Notes: Medication treatment options discussed with patient. He will call his insurance provider and find out if bariatric services are a covered benefit * Follow Up: v ia phone to report progress * Images: Billing Information: * Visit Code: 52436 Office Visit, Est Pt., Level 3. * Procedure Codes: * Electronic signature of Deja Wooten MD on 10/14/2025 at 11:02 AM EST Sign off status: Pending * Provider: Don Wooten M.D. Date: 0 11/30/2024 Generated for Alexis patel/Rhea/Shanta on: 12/14/2024 11:02 AM EST History and Physical Notes * HPI (History of Present Illness) Category Sub-Category Detail Notes Category Not es ENT/respiratory ear pain Pt complains of bilateral ear pain for a while . Pt states it feels like there is something down in there and his ears pop at times Examination Category Sub-Category Detail Notes Category Not es ENT/Respiratory Oral cavity : no erythema or exudate s een on pharynx Ears: auditory canals norm al bilaterally, TM's WNL Neck : no cervical lymphade nopathy Heart : RRR, normal S1 S2 Lungs: clear to auscultatio n bilaterally General Appearance: NAD Nose : nares patent, pale, edematous turbinates Eyes: PERRLA, sclera clear
--- OUTSIDE RECORDS SUMMARY | 2025-01-26 10:15 | XMS_ITS ---
[facility] Address [address] [facility] [address] [id number] Care Team Providers Care Home Manager Name Role Phone Ralph Wooten Primary Care Provider Valerie Fiore Unavailable [phone] Allergies No Known Allergies Results Component Value Reference Range Notes CBC Venipuncture (in house) Reviewed date:01/28/2025 12:36:04 PM Interpretation: Performing Lab: Notes/Report: wbc 9.8 3.5 - 10 lymph 26.2% 15 - 50 mid 6.4% 2 - 15 gran 67.4% 35 - 80 rbc 5.11 3.5 - 5.5 hgb 15.6 11.5 - 16.5 hct 45.3 35 - 55 mcv 88.5 75 - 100 mch 30.5 25 - 35 mchc 34.5 31 - 38 platlet 212 100 - 400 P-Comprehensive Metabolic Pa mert (CMP) Reviewed date:01/28/2025 12:36:03 PM Interpretation: Performing Lab: Notes/Report: Test performed by [facility] [address] [place] [address] , [address], [place] [address] Edwin Farmer MD, Space Technologist CLIA: [id number] Sodium 140 135-145 mmol/L Potassium 3.7 3.5-5.3 mmol/L Chloride 103 97-108 mmol/L CO2 24 22-32 mmol/L Glucose 120 65-99 mg/dL BUN 11 6-20 mg/dL Creatinine 0.78 0.70-1.30 mg/dL Calcium 9.6 8.6-10.4 mg/dL eGFR by Creatinine 126 >59 mL/min/1.73m2 Protein 7.1 6.0-8.3 g/dL Albumin 4.3 3.5-5.3 g/dL Alkaline Phosphatase 106 40-129 IU/L ALT (SGPT) 69 <5-55 IU/L AST (SGOT) 32 <5-46 IU/L Bilirubin, Total 0.6 <0.2-1.2 mg/dL A/G Ratio 1.5 1.1-2.5 P-Hepatitis Acute Profile Reviewed date:01/28/2025 12:36:04 PM Interpretation: Performing Lab: Notes/Report: Test performed by [facility] [address] [place] [address] , [address], [place] [address] Edwin Farmer MD, Space Technologist CLIA: [id number] Hepatitis A Antibody, IgM Nonreactive Nonreactive Hepatitis B Core Antibody (HBcAb) IgM Nonreactive Nonreactive Hepatitis B Surface Antigen (HBsAg) Nonreactive Nonreactive Hepatitis C Antibody (HCV) IgG Nonreactive Nonreactive P-Lipid Panel Reviewed date:01/28/2025 12:36:04 PM Interpretation: Performing Lab: Notes/Report: Test performed by [facility] [address] [place] [address] , [address], [place] [address] Edwin Farmer MD, Space Technologist CLIA: [id number] Cholesterol 172 <200 mg/dL Triglycerides 340 <150 mg/dL HDL Cholesterol 32 >39 mg/dL Cholesterol / HDL Ratio 5.38 0.00-4.99 Ratio Non-HDL Cholesterol 140 <130 mg/dL LDL Cholesterol (Calculation) 72 <130 mg/dL LDL Cholesterol Levels* Less than 100 mg/dL Optimal 100 to 129 mg/dL Near Optimal/ Above Optimal 130 to 159 mg/dL Borderline High 160 to 189 mg/dL High 190 mg/dL and above Very High * Categories as recommended by the 2004 ATPIII guidelines LDL/HDL Ratio 2.3 <3.3 Ratio LDL Cholesterol Patient History Test Date: 01/26/2025 LDL Results: 72 Units: mg/dL % Change: - P-TSH reflex to FT4 Reviewed date:01/28/2025 12:36:04 PM Interpretation: Performing Lab: Notes/Report: Test performed by [facility] [address] [place] [address] , [address], [place] [address] Edwin Farmer MD, Space Technologist CLIA: [id number] TSH reflex to FT4 2.30 0.43-5.25 mU/L REASON FOR VISIT chest pains ,B/P high arms sore Medications Medication SIG (Take, Route, Frequency, Duration) Notes Start Date End Date Status Triamcinolone Acetonide 0.1 % 1 application Externally three times a day as needed Active Lisinopril 10 MG 1 tablet Orally Once a day; Duration: 30 day(s) 01/26/2025 Active Social History Tobacco Use: Social History Observation Description Date Details (start date - stop date) Current Smoker NA - NA CURRENT TOBACCO USE: Question Answer Notes Are you a: current smoker How often do you smoke cigarettes? every day How many cigarettes a day do you smoke? 6-10 Vital Signs Weight 246.8 lbs 01/26/2025 Blood pressure systolic 152 mm Hg 01/27/20 25 Blood pressure diastolic 100 mm Hg 025 Heart Rate 94 /min 01/26/2025 Height 66 in 01/26/2025 BMI 39.83 kg/m2 01/26/2025 Encounters Encounter Location Date Provider Diagnosis [facility] [address] [place], [place] [id number] 01/26/2025 Valerie Fiore HBP (high blood pressure) I10 ; Elevated liver enzymes R74.8 ; Chronic eczema L30.9 ; Chest pain, unspecified type R07.9 and Screening, lipid Z13.220 Assessments Encounter Date Diagnosis (ICD Code) Assessment Notes Treatment Notes Treatment Clinical Notes Section Notes 01/26/2025 HBP (high blood pressure) (ICD-10 - I10) He has a family hx of HTN and most of his family takes lisinopril. Will start on lisinopril and he will monitor his BP at home and call in 1 week with readings. 01/26/2025 Elevated liver enzymes (ICD-10 - R74.8) He never came back to get repeat labs. Will recheck liver and hepatitis profile. 01/26/2025 Chronic eczema (ICD-10 - L30.9) 01/26/2025 Chest pain, unspecified type (ICD-10 - R07.9) Likely due to elevated BP. 01/26/2025 Screening, lipid (ICD-10 - Z13.220) Plan Of Treatment Medication Medication Name Sig Start Date Stop Date Notes Triamcinolone Acetonide 0.1 % 1 applicat ion Externally three times a day as needed Lisinopril 10 MG 1 tablet Orally Once a day; Duration: 30 day(s) 01/26/2025 Treatment Notes Assessment Notes HBP (high blood pressure) He has a famil y hx of HTN and most of his family takes lisinopril. Will start on lisinopril and he will monitor his BP at home and call in 1 week with readings. Elevated liver enzymes He never came paty k to get repeat labs. Will recheck liver and hepatitis profile. Chest pain, unspecified type Likely due to elevated BP. Next Appt Details Follow Up: via phone to repo rt test results, Reason: Provider Name:Valerie Butt y, 10/14/2025 01:40:00 PM, [address], [address], [place], [place], [id number], Progress Notes * Kane CLAYTONDOB:[birth year] (25 yo M)Acc No.[id number]:01/26/2025 Progress Notes Patient: Kane DELONG Provider: CAROL Lopez :2000 A ge:24 Y S ex:Male Date:01/26/2025 Address:[place] [id number] Pcp:Ralph Wooten Subjective: * Chief Complaints: * 1 . chest pains ,B/P high arms sore. * HPI: C ardiology: The pt is here today with c/o chest pain in the center of his chest that was like a sharp pain and lasted 30-60 minutes. This has happened multiple times and when he checks his BP, it is always high. Pt states he has had episodes of a feeling like his heart was racing when his BP is high. Pt states his BP on Friday was 174/108 and 147/97 15 minutes later. Pt states on Friday it was 164/99. He was prescribed losartan in the past but only took 1 pill because it made him feel weird. . 24 year old male presents with c/o Chest Pain. c/o Short of Breath. c/o Palpitations. c/o Blood Pressure Elevated. c/o Headaches. Denies : Dizziness. * ROS: D ERMATOLOGY: no R anuradha. n o H sindhu. G ASTROENTEROLOGY: no N ausea. n o V omiting. n o D iarrhea.? U ROLOGY: no D ifficulty urinating. n o B lood in urine. * Medical History: E czema , Hypertension. * Surgical History: V asectomy 2023. * Family History: F ather: alive 41 yrs. M other: alive 41 yrs. 1 brother(s) - healthy. 2 son(s) - healthy. . Maternal aunt and Maternal uncle high blood pressure. * Social History: C URRENT TOBACCO USE: Yes A re you a: c urrent smoker, H ow often do you smoke cigarettes? e very day, H ow many cigarettes a day do you smoke? 6 -10. A lcohol: yes, a few beers a week. * Medications: D iscontinued Fluticasone Propionate 50 MCG/ACT Suspension 1 spray in each nostril Nasally Twice a day , Medication List reviewed and reconciled with the patient * Allergies: N .K.D.A. Objective: * Vitals: W t:246.8, Temp:98.4, BP:152/100, HR:94, O2 Sat:98% on RA, Nurse:JOHN, Ht: 66, Repeat BP:130/98, BMI:39.83. * Examination: G eneral Examination: General Appearance: N AD. H EENT: u nremarkable.?Oral cavity: n o lesions, mucosa moist and WNL, no erythema. N edwige: s upple, no lymphadenopathy. C hest: n ormal shape and expansion. H eart: R SR. L ungs: c lear to auscultation. A bdomen: bowel sounds present, soft and nontender, no organomegaly or masses, no guarding or rigidity. N eurologic Exam: I ntact, gait normal. S kin: n ormal, no rash. P eripheral pulses: n ormal (2+) bilaterally. E xtremities: n o leg edema. Assessment: * Assessment: 1. H BP (high blood pressure) - I10 (Primary) 2 . E levated liver enzymes - R74.8 3 . C hronic eczema - L30.9 4 . C hest pain, unspecified type - R07.9 5 . S creening, lipid - Z13.220 Plan: * Treatment: Value Reference Range T SH reflex to FT4 2.30 0.43-5.25 - mU/L * Valerie Fiore 01/28/2025 12 :35:53 PM > see TE ?LAB: CBC Venipuncture (in house) (Collection Date & Time - 01/26/2025)* Value Reference Range w bc 9.8 3.5 - 10 * l ymph 26.2% 15 - 50 * m id 6.4% 2 - 15 * g ran 67.4% 35 - 80 * r bc 5.11 3.5 - 5.5 * h gb 15.6 11.5 - 16.5 * h ct 45.3 35 - 55 * m cv 88.5 75 - 100 * m ch 30.5 25 - 35 * m chc 34.5 31 - 38 * p latlet 212 100 - 400 * Delia Wallace 01/26/2025 4:5 9:01 PM > Valerie Fiore 01/28/2025 12:35:53 PM > see TE Notes: He has a family hx of HTN and most of his family takes lisinopril. Will start on lisinopril and he will monitor his BP at home and call in 1 week with readings.??2.?Elevated liver enzymes?LAB: P-Comprehensive Metabolic Panel (CMP) (Collection Date & Time - 01/26/2025 02:51 PM)* Value Reference Range A /G Ratio 1.5 1.1-2.5 - * A lbumin 4.3 3.5-5.3 - g/dL * A lkaline Phosphatase 106 40-129 - IU/L * A LT (SGPT) 69 H <5-55 - IU/L * A ST (SGOT) 32 <5-46 - IU/L * B ilirubin, Total 0.6 <0.2-1.2 - mg/dL * B UN 11 6-20 - mg/dL * C alcium 9.6 8.6-10.4 - mg/dL * C hloride 103 97-108 - mmol/L * C O2 24 22-32 - mmol/L * C reatinine 0.78 0.70-1.30 - mg/dL * G lucose 120 H 65-99 - mg/dL * P otassium 3.7 3.5-5.3 - mmol/L * S odium 140 135-145 - mmol/L * P rotein 7.1 6.0-8.3 - g/dL * e GFR by Creatinine 126 >59 - mL/min/1.73m2 * Valerie Fiore Yamilet 01/28/2025 12 :35:53 PM > see TE ?LAB: P-Hepatitis Acute Profile (Collection Date & Time - 01/26/2025 02:51 PM)* Value Reference Range H epatitis A Antibody, IgM Nonreactive Nonreactive - * H epatitis B Core Antibody (HBcAb) IgM Nonreactive Non reactive - * H epatitis B Surface Antigen (HBsAg) Nonreactive Nonre active - * H epatitis C Antibody (HCV) IgG Nonreactive Nonreactiv e - * Valerie Fiore Yamilet 01/28/2025 12 :35:53 PM > see TE Notes: He never came back to get repeat labs. Will recheck liver and hepatitis profile.??3.?Chronic eczema? Start Triamcinolone Acetonide Cream, 0.1 %, 1 application, Externally, three times a day as needed,454 grams, Refills 2.??4.?Chest pain, unspecified type? Notes: Likely due to elevated BP.??5.?Screening, lipid?LAB: P-Lipid Panel (Collection Date & Time - 01/26/2025 02:51 PM)* Value Reference Range C holesterol / HDL Ratio 5.38 H 0.00-4.99 - Ratio * C holesterol 172 <200 - mg/dL * H DL Cholesterol 32 L >39 - mg/dL * L DL Cholesterol (Calculation) 72 <130 - mg/d L * L DL/HDL Ratio 2.3 <3.3 - Ratio * N on-HDL Cholesterol 140 H <130 - mg/dL * T riglycerides 340 H <150 - mg/dL * Valerie Fiore 01/28/2025 12 :35:53 PM > see TE * Procedure Codes: 9 4760 [place], [address] CBC WITH AUTO DIFF, 22019 VENIPUNCT, ROUTINE*, 3075F SYST BP GE 130 - 139MM HG, 3080F DIAST BP = 90 MM HG * Follow Up: v ia phone to report test results * Images: Billing Information: * Visit Code: 25610 Office Visit, Est Pt., Level 4. * Procedure Codes: [address] [place]. [address] CBC WITH AUTO DIFF. 41684 VENIPUNCT, ROUTINE*. 3075F SYST BP GE 130 - 139MM HG. 3080F DIAST BP = 90 MM HG. * Electronic signature of CAROL Fox on 10/14/2025 at 11:01 AM EST Sign off status: Pending * Provider: CAROL Lopez Date: 0 01/26/2025 Generated for Alexis patel/Rhea/Shanta on: 12/14/2024 11:01 AM EST History and Physical Notes * HPI (History of Present Illness) Category Sub-Category Detail Notes Category Not es Cardiology Short of Breath Chest Pain Palpitations Dizziness Blood Pressure Elevated Headaches Examination Category Sub-Category Detail Notes Category Not es General Examination HEENT: unremarkable Heart: RSR Lungs: clear to auscultatio n Abdomen: bowel sounds present , soft and nontender, no organomegaly or masses, no guarding or rigidity Extremities: no leg edema General Appearance: NAD Skin: normal, no rash Neurologic Exam: Intact, gait normal Neck: supple, no lymphaden opathy Oral cavity: no lesions, mucosa m oist and WNL, no erythema Peripheral pulses: normal (2+) bilatera lly Chest: normal shape and exp ansion
--- OUTSIDE RECORDS SUMMARY | 2025-05-04 11:15 | XMS_ITS ---
Author Organization [facility] Address [facility] [address] [id number] Care Team Providers Care Attendant Sales Name Role Phone Ralph Wooten Primary Care Provider Valerie Fiore Unavailable [phone] Allergies No Known Allergies Results Component Value Reference Range Notes sleep study Reviewed date:06/08/2025 02:17:38 PM Interpretation:Abnormal-CORNELIO, snoring, hypoxia and leg movement Performing Lab: Notes/Report: Abnormal-CORNELIO, snoring, hypoxia and leg movement REASON FOR VISIT ER f/u sleep study Medications Medication SIG (Take, Route, Frequency, Duration) Notes Start Date End Date Status Lisinopril 20 MG 1 tablet Orally Once a day; Duration: 90 days 02/19/2025 Active Triamcinolone Acetonide 0.1 % 1 application Externally three times a day as needed Active Wegovy 0.25 MG/0.5ML 0.5 mL Subcutaneous once a week; Duration: 30 days Dx of E66.01 01/27/2025 Active Social History Tobacco Use: Social History [...] Problem Status W/U Status Risk Notes Problem Generalized anxiety disorder (17160886) Anxiety, generalized (F41.1) Active confirmed Vital Signs Weight 234.4 lbs 05/04/2025 Blood pressure systolic 120 mm Hg 05/04/20 25 Blood pressure diastolic 70 mm Hg 025 Heart Rate 92 /min 05/04/2025 Height 66 in 05/04/2025 BMI 37.83 kg/m2 05/04/2025 Encounters Encounter Location Date Provider Diagnosis [facility]10 [facility] 36 [facility] [address] [place] [id number] 05/04/2025 Valerie Fiore Other chest pain R07 .89 and Snoring R06.83 Assessments Encounter Date Diagnosis (ICD Code) Assessment Notes Treatment Notes Treatment Clinical Notes Section Notes 05/04/2025 Other chest pain (ICD-10 - R07.89) Reviewed ER note and all testing came back normal. Will get in hospital sleep study. May need to see cardiology, but patient does not want to pursue that at this time. 05/04/2025 Snoring (ICD-10 - R06.83) He does not sleep well and would like something to help him sleep. He also struggles with anxiety but does not want to take something daily. Hydroxyzine would be a good choice, but would like to get the sleep study first. Plan Of Treatment Treatment Notes Assessment Notes Other chest pain Reviewed ER note and all testing came back normal. Will get in hospital sleep study. May need to see cardiology, but patient does not want to pursue that at this time. Snoring He does not sleep we ll and would like something to help him sleep. He also struggles with anxiety but does not want to take something daily. Hydroxyzine would be a good choice, but would like to get the sleep study first. Next Appt Details Follow Up: via phone to repo rt test results, Reason: Provider Name:Valerie Yamilet Butt y, 10/14/2025 01:40:00 PM, 1210 [facility] 36 [facility], [address], [place], [phone], Progress Notes * Kane CLAYTONDOB:[birth year] (25 yo M)Acc No.[id number]:05/04/2025 Progress Notes Patient: Kane DELONG Provider: CAROL Lopez :2000 A ge:24 Y S ex:Male Date:05/04/2025 Address:[address] [place] [address] [id number] Pcp:Ralph Wooten Subjective: * Chief Complaints: * 1 . ER f/u sleep study. * HPI: H PI: 24 year old male presents with c/o Here for follow up on: P t is here today for an ER for chest pain and dizziness. Everything came back normal and his?BP was normal. T he ER physician wanted him to have a f/u sleep study.. * ROS: D ERMATOLOGY: no R anuradha. [...] a few beers a week. * Medications: T aking Triamcinolone Acetonide 0.1 % Cream 1 application Externally three times a day as needed , Taking Wegovy 0.25 MG/0.5ML Solution Auto-injector 0.5 mL Subcutaneous once a week , Notes to Pharmacist: Dx of E66.01, Taking Lisinopril 20 MG Tablet 1 tablet Orally Once a day , Medication List reviewed and reconciled with the patient * Allergies: N .K.D.A. Objective: * Vitals: W t: 234.4, Temp: 98.6, BP: 120/70, HR: 92, Nurse: emeka, Ht: 66, BMI:37.83. * Examination: G eneral Examination: General Appearance: N AD. H EENT: u nremarkable.?Oral cavity: n o lesions, mucosa moist and WNL, no erythema. N edwige: s upple, no lymphadenopathy. C hest: n ormal shape and expansion. H eart: R SR. L ungs: c lear to auscultation. A bdomen: b owel sounds present, soft and nontender. N eurologic Exam: I ntact, gait normal. S kin: n ormal, no rash. P eripheral pulses: n ormal (2+) bilaterally. E xtremities: n o leg edema. Assessment: * Assessment: 1. O ther chest pain - R07.89 (Primary) 2 . S noring - R06.83 ? Plan: * Treatment: 2. S noring I maging: sleep study (Performed Date - 05/12/2025) A bnormal-CORNELIO, snoring, hypoxia and leg movement Notes: He does not sleep well and would like something to help him sleep. He also struggles with anxiety but does not want to take something daily. Hydroxyzine would be a good choice, but would liketo get the sleep study first. ?? * Procedure Codes: G 8783 BP SCR PRFRM RCMDD DEFIND SCR INTVL, G8752 MOST RECENT SYSTOLIC BP < 140MM HG, G8754 MOST RECENT DIASTOLIC BP < 90MM HG * Follow Up: v ia phone to report test results * Images: Billing Information: * Visit Code: 67440 Office Visit, Est Pt., Level 4. * Procedure Codes: G8783 BP SCR PRFRM RCMDD DEFIND SCR INTVL. G8752 MOST RECENT SYSTOLIC BP < 140MM HG. G8754 MOST RECENT DIASTOLIC BP < 90MM HG. * Electronic signature of CAROL Fox on 10/14/2025 at 11:01 AM EST Sign off status: Pending * Provider: CAROL Lopez Date: 0 05/04/2025 Generated for Alexis patel/Rhea/eTransmitting on: 1 12/14/2024 11:01 AM EST History and Physical Notes * HPI (History of Present Illness) Category Sub-Category Detail Notes Category Not es HPI Here for follow up on: Pt is her e today for an ER for chest pain and dizziness. Everything came back normal and his BP was normal. The ER physician wanted him to have a f/u sleep study. Examination Category Sub-Category Detail Notes Category Not es General Examination HEENT: unremarkable Heart: RSR Lungs: clear to auscultatio n Abdomen: bowel sounds present , soft and nontender Extremities: no leg edema General Appearance: NAD Skin: normal, no rash Neurologic Exam: Intact, gait normal Neck: supple, no lymphaden opathy Oral cavity: no lesions, mucosa m oist and WNL, no erythema Peripheral pulses: normal (2+) bilatera lly Chest: normal shape and exp ansion
--- OUTSIDE RECORDS SUMMARY | 2025-08-24 11:30 | XMS_ITS ---
Author Organization [facility] Address [address] [facility] 36 [facility] [address] [place] [id number] Care Team Providers Care Behavioral Health Director Name Role Phone Ralph Wooten Primary Care Provider [phone] Valerie Loyola Unavailable [phone] Allergies No Known Allergies REASON FOR VISIT med check Social History Tobacco Use: Social History Observation Description Date Details (start date - stop date) Current Smoker NA - NA CURRENT TOBACCO USE: Question Answer Notes Are you a: current smoker How often do you smoke cigarettes? every day How many cigarettes a day do you smoke? 6-10 Encounters Encounter Location Date Provider Diagnosis [facility] [address] [facility] 36 [facility] [address] [place] [id number] 08/24/2025 Valerie Fiore Plan Of Treatment Next Appt Details Provider Name:Valerie Butt y, 10/14/2025 01:40:00 PM, [address] [facility] 36 [facility], [address], [place], [place], [id number], Progress Notes * Kane CLAYTONDOB:[birth year] (25 yo M)Acc No.[id number]:08/24/2025 Progress Notes Patient: Kane DELONG Provider: CAROL Lopez :2000 A ge:25 Y S ex:Male Date:08/24/2025 Address:[address] [place] [address] Pcp:Ralph Wooten Subjective: * Chief Complaints: * 1 . Med check. * ROS: D ERMATOLOGY: no R anuradha. [...] yes, a few beers a week. * Allergies: N .K.D.A. Objective: * Vitals: Assessment: Plan: * Treatment: * Images: Billing Information: * Visit Code: * Procedure Codes: * Electronic signature of CAROL Fox on 10/14/2025 at 11:02 AM EST Sign off status: Pending * Provider: CAROL Lopez Date: Generated for Alexis patel/Rhea/Shanta on: 12/14/2024 11:02 AM EST
--- OUTSIDE RECORDS SUMMARY | 2025-09-14 11:45 | XMS_ITS ---
Author Organization [facility] Address [facility] [address] [place], [place] [address] Care Team Providers Care Platform Inspector Name Role Phone Ralph Wooten Primary Care Provider Valerie Fiore Unavailable [phone] Allergies No Known Allergies REASON FOR VISIT f/U bp Medications Medication SIG (Take, Route, Frequency, Duration) Notes Start Date End Date Status Lisinopril 20 MG 1 tablet Orally Once a day; Duration: 90 days 02/19/2025 Active Escitalopram Oxalate 5 MG 1 tablet Orally Once a day; Duration: 30 days 09/14/2025 Active Triamcinolone Acetonide 0.1 % 1 application [...] Problem Status W/U Status Risk Notes Problem Mixed hyperlipidemia (037033330) Mixed hyperlipidemia (E78.2) Active confirmed Vital Signs Weight 231 lbs 09/14/2025 Blood pressure systolic 150 mm Hg 09/14/20 25 Blood pressure diastolic 80 mm Hg 025 Heart Rate 93 /min 09/14/2025 Height 66 in 09/14/2025 BMI 37.28 kg/m2 09/14/2025 Encounters Encounter Location Date Provider Diagnosis [facility]10 [facility] 36 [facility] [address] [place] [id number] 09/14/2025 Valerie Fiore Anxiety, generalized F41.1 ; Elevated liver enzymes R74.8 ; HBP (high blood pressure) I10 and Mixed hyperlipidemia E78.2 Assessments Encounter Date Diagnosis (ICD Code) Assessment Notes Treatment Notes Treatment Clinical Notes Section Notes 09/14/2025 Anxiety, generalized (ICD-10 - F41.1) 09/14/2025 Elevated liver enzymes (ICD-10 - R74.8) He never came back to get repeat labs. Will recheck liver and hepatitis profile. 09/14/2025 HBP (high blood pressure) (ICD-10 - I10) BP has been normal at home. Normal when rechecked. 09/14/2025 Mixed hyperlipidemia (ICD-10 - E78.2) Plan Of Treatment Medication Medication Name Sig Start Date Stop Date Notes Escitalopram Oxalate 5 MG 1 tablet Orall y Once a day; Duration: 30 days 09/14/2025 Treatment Notes Assessment Notes Elevated liver enzymes He never came paty to get repeat labs. Will recheck liver and hepatitis profile. HBP (high blood pressure) BP has been no rmal at home. Normal when rechecked. Next Appt Details Follow Up: 3 Weeks, Reason: Provider Name:Valerie Butt y, 10/14/2025 01:40:00 PM, 1210 [facility] 36 [facility], [address], [place], [id number], Progress Notes * Kane CLAYTONDOB:[birth year] (25 yo M)Acc No.[id number]:09/14/2025 Progress Notes Patient: Kane DELONG Provider: CAROL Lopez :2000 A ge:25 Y S ex:Male Date:09/14/2025 Address:[address] [place] [address] [id number] Pcp:Ralph Wooten Subjective: * Chief Complaints: * 1 . f/U bp. * HPI: C ardiology: 25 year old male presents with c/o Blood Pressure Elevated P t here to f/u on BP. Pt states he has not checked it at home. Pts BP today is a little high. P sychology: c/o Anxiety W ould like to start on something for anxiety..? * ROS: D ERMATOLOGY: no R anuradha. [...] 1 tablet Orally Once a day , Discontinued AutoPAP - - 05/02 settings as directed as directed , Medication List reviewed and reconciled with the patient * Allergies: N .K.D.A. Objective: * Vitals: W t: 231, Temp: 97.6, BP: 150/80, HR: 93, Nurse: pe, Ht: 66, Repeat BP: 120/78, BMI:37.28. * Examination: G eneral Examination: General Appearance: [...] blood pressure) - I10 (Primary) 2 . A nxiety, generalized - F41.1 3 . E levated liver enzymes - R74.8 4 . M ixed hyperlipidemia - E78.2 Plan: * Treatment: 2. A nxiety, generalized Start Escitalopram Oxalate Tablet, 5 MG, 1 tablet, Orally, Once a day, 30 days, 30 Tablet, Refills 0. 3. E levated liver enzymes Notes: He never came back to get repeat labs. Will recheck liver and hepatitis profile. * Procedure Codes: 3 074F SYST BP LT 130 MM HG, 3078F DIAST BP < 80 MM HG * Follow Up: 3 Weeks * Images: Billing Information: * Visit Code: 57093 Office Visit, Est Pt., Level 4. * Procedure Codes: 3074F SYST BP LT 130 MM HG. 3078F DIAST BP < 80 MM HG. * Electronic signature of CAROL Fox on 10/14/2025 at 11:02 AM EST Sign off status: Pending * Provider: CAROL Lopez Date: Generated for Alexis patel/Rhea/eTnoemysmitting on: 12/14/2024 11:02 AM EST History and Physical Notes * HPI (History of Present Illness) Category Sub-Category Detail Notes Category Not es Cardiology Blood Pressure Elevated Pt here to f/u on BP. Pt states he has not checked it at home. Pts BP today is a little high Psychology Anxiety Would like to st art on something for anxiety. Examination Category Sub-Category Detail Notes Category Not [...]
--- OUTSIDE RECORDS SUMMARY | 2025-10-14 04:17 | XMS_ITS ---
Author Organization [facility] Address 1210 [facility] 36 [facility] [address] [place], [place] [phone] Care Team Providers Care Oil Seal Assembler Name Role Phone Kris Wootenian Primary Care Provider [phone] Valerie Loyola [phone] REASON FOR VISIT Lab Order Encounters Encounter Location Date Provider Diagnosis [facility] [address] [facility] [address] [place] [id number] 10/14/2025 Valerie Fiore Plan Of Treatment Next Appt Details Provider Name:Valerie Butt y, 10/14/2025 01:40:00 PM, [address], [facility] [place], [id number], Progress Notes * Kane CLAYTONDOB:[birth year] (25 yo M)Acc No.[id number]:10/14/2025 Patient: Anca OLVERAKane PEARSON :2000 A ge:25 Y S ex:Male Address:[address] [place] [address], [address] Subjective: * Chief Complaints: * L ab Order * Medical History: * Surgical History: * Hospitalization/Major Diagno stic Procedure: * Medications: Objective: * Vitals: * Physical Examination: Assessment: Plan: * Treatment: * Procedure Codes: * true * Date: Generated for Printi ng/Faxing/eTransmitting on: 12/14/2024 11:01 AM EST
--- OUTSIDE RECORDS SUMMARY | 2025-10-14 11:02 | XMS_ITS | Patient Health Record ---
Author Organization [facility] Address [address] [place] [address] [id number] Care Team Providers Care Burring Wheel Operator Name Role Phone Ralph Wooten Primary Care Provider [phone] AnkitValerie louis Unavailable [phone] Allergies No Known Allergies Results Component Value [...] Interpretation: Performing Lab: Notes/Report: Test performed by [employer], [employer] [address] [place] [address] , [address], [place] [address] Edwin Farmer MD, Cultural Historian CLIA: [id number] Sodium 140 135-145 mmol/L Potassium 3.7 3.5-5.3 [...] Interpretation: Performing Lab: Notes/Report: Test performed by [facility] [address] [place] [address] [address], [place] [address] Edwin Farmer MD, Cultural Historian CLIA: [id number] Hepatitis A Antibody, IgM Nonreactive Nonreactive Hepatitis B Core Antibody (HBcAb) IgM Nonreactive Nonreactive Hepatitis B Surface Antigen (HBsAg) Nonreactive Nonreactive Hepatitis C Antibody (HCV) IgG Nonreactive Nonreactive P-Lipid Panel Reviewed date:01/28/2025 12:36:04 PM Interpretation: Performing Lab: Notes/Report: Test performed by [facility] [address] [place] [address] [address], [place] [address] Edwin Farmer MD, Cultural Historian CLIA: [id number] Cholesterol 172 <200 mg/dL Triglycerides 340 <150 [...] Interpretation: Performing Lab: Notes/Report: Test performed by [facility] [address] [place] [address] , [address], [place] [address] Edwin Farmer MD, Cultural Historian CLIA: [id number] TSH reflex to FT4 2.30 0.43-5.25 mU/L sleep study Reviewed date:06/08/2025 02:17:38 PM Interpretation:Abnormal-CORNELIO, snoring, hypoxia and leg movement Performing Lab: Notes/Report: Abnormal-CORNELIO, snoring, hypoxia and leg movement Reason For Referral No Information Medications Medication SIG (Take, Route, Frequency, Duration) Notes Start Date End Date Status Lisinopril 20 MG 1 tablet Orally Once a day; Duration: 90 days 02/19/2025 Active Escitalopram Oxalate 5 MG Take 1 tablet by mouth once daily; Duration: 30 Active Triamcinolone Acetonide 0.1 % 1 application [...] W/U Status Risk Notes Problem Morbid obesity (858267914) Morbid obesity (E66.01) Active confirmed Problem Otitis externa (8454707) Otitis externa (H60.90) Active confirmed Problem Mixed hyperlipidemia (939516694) Mixed hyperlipidemia (E78.2) Active confirmed Problem Generalized anxiety disorder (89248841) Anxiety, generalized (F41.1) Active confirmed Problem HBP - High blood pressure (26726768) HBP (high blood pressure) (I10) Active confirmed Problem Hypersomnia (12436490) Hypersomnia (G47.10) Active confirmed Problem Obese class II (279622673332651) BMI 39.0-39.9,adult (Z68.39) Active confirmed Problem Obesity (517694294) Non morbid obesity (E66.9) Active confirmed Problem Allergic rhinitis (68775600) Allergic rhinitis, unspecified seasonality, unspecified trigger (J30.9) Active confirmed Problem Lesion of ulnar nerve (586639877) 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 Vital Signs Heart Rate 93 /min 09/14/2025 Blood pressure diastolic 80 mm Hg 09/14/2025 Height 66 in 09/14/2025 Blood pressure systolic 150 mm Hg 09/14/2025 Weight 231 lbs 09/14/2025 BMI 37.28 kg/m2 09/14/2025 Encounters Encounter Location Date Provider Diagnosis [facility] [address] [place] [id number] 11/30/2024 Ralph Alexandria Otalgia, bilateral H 92.03 ; Allergic rhinitis, unspecified seasonality, unspecified trigger J30.9 and Morbid obesity E66.01 [facility] [address] [place] [id number] 01/26/2025 Valeriedoreen Fiore HBP (high blood pres sure) I10 ; Elevated liver enzymes R74.8 ; Chronic eczema L30.9 ; Chest pain, unspecified type R07.9 and Screening, lipid Z13.220 [facility] [address] [place] [id number] 05/04/2025 Valerie Macarena Other chest pain R07 .89 and Snoring R06.83 [facility] [address] [place] [id number] 09/14/2025 Valerie Fiore Anxiety, generalized F41.1 ; Elevated liver enzymes R74.8 ; HBP (high blood pressure) I10 and Mixed hyperlipidemia E78.2 [facility] [address] [place], [place] [id number] 12/13/2024 Ralph Alexandria [facility] [address] [place], [place] [id number] 01/26/2025 Ralph Alexandria [facility] [address] [place] [id number] 01/28/2025 Valerie Crowdy [facility] [address] [place] [id number] 02/01/2025 Ralph Alexandria [facility] [address] [place] [id number] 02/07/2025 Ralph Alexandria [facility] [address] [place] [id number] 02/19/2025 Valerie Fiore HBP (high blood pres sure) I10 [facility] [address] [place] [id number] 04/05/2025 Ralph Alexandria [facility] [address] [place] [id number] 05/03/2025 Ralph Alexandria [facility] [address] [place] [id number] 06/08/2025 Valerie Crowdy [facility] [address] [place], [place] [id number] 08/17/2025 Ralph Alexandria [facility] [address] [place], [place] [id number] 10/14/2025 Valerie Fiore Assessments Encounter Date Diagnosis (ICD Code) Assessment Notes Treatment Notes Treatment Clinical Notes Section Notes 11/30/2024 Otalgia, bilateral (ICD-10 - H92.03) 11/30/2024 Allergic rhinitis, unspecified seasonality, unspecified trigger (ICD-10 - J30.9) 02/19/2025 HBP (high blood pressure) (ICD-10 - [...] want to pursue that at this time. 01/26/2025 Elevated liver enzymes (ICD-10 - R74.8) He never came back to get repeat labs. Will recheck liver and hepatitis profile. 01/26/2025 HBP (high blood pressure) (ICD-10 - I10) He has a family hx of HTN and most of his family takes lisinopril. Will start on lisinopril and he will monitor his BP at home and call in 1 week with readings. 09/14/2025 Anxiety, generalized (ICD-10 - F41.1) 01/26/2025 Chronic eczema (ICD-10 - L30.9) 09/14/2025 Elevated liver enzymes (ICD-10 - R74.8) He never came back to get repeat labs. Will recheck liver and hepatitis profile. 11/30/2024 Morbid obesity (ICD-10 - E66.01) Medication treatment options discussed with patient. He will call his insurance provider and find out if bariatric services are a covered benefit 09/14/2025 Mixed hyperlipidemia (ICD-10 - E78.2) 09/14/2025 HBP (high blood pressure) (ICD-10 - I10) BP has been normal at home. Normal when rechecked. 01/26/2025 Chest pain, unspecified type (ICD-10 - R07.9) Likely due to elevated BP. 01/26/2025 Screening, lipid (ICD-10 - Z13.220) Plan Of Treatment Pending Test Test Name Order Date Lipid Profile 10/29/2022 Hepatitis Panel 06/20/2021 TSH 10/29/2022 CMP 10/29/2022 CBC 10/29/2022 H-TSH 12/18/2023 H-Lipid Panel 12/18/2023 H-Liver Panel 06/20/2021 H-CMP 12/18/2023 Next Appt Details Provider Name:Valerie rush, 10/14/2025 01:40:00 PM, [address], [place], [place], [id number], Insurance Providers Payer Name Payer Address Payer Phone Subscriber Number Group Number Insured Name Patient Relationship to Insured Coverage Start Date Coverage End Date VJ ANDINO [address] [place] [address] [id number] Kane Hines Self - patient is the insured Medical (General) History Medical History History ICD Code Eczema Hypertension Surgical History Surgery Date(Month/Year) Vasectomy 2023
--- OUTSIDE RECORDS SUMMARY | 2025-10-14 11:02 | XMS_ITS | Data Portability ---
Author Organization [place] [facility] Address [address] [facility] [address] [place] [address] Assessment No assessment recorded. Plan of Treatment Reminders Order Date Submit Date Provider Last Modified By Organization Details Last Modified Time Details Appointments None recorded. Lab None recorded. Referral None recorded. Procedures None recorded. Surgeries None recorded. Imaging None recorded. Medication Orders acetaminoph en 300 mg-codeine 30 mg tablet 2023 024 [facility] 591, [address], [address], 14:17:54 Patient TargetsNo targets recorded. Patient Instructions Encounter Date Encounter Id Patient Instructions Last Modified By Organization Details Last Modified Time 06/28/2024 [id number] I discussed vasectomy in great detail with [...] under LMAC Not available 06/28/2024 19:32:24 12/20/2024 [id number] benign nature of spermatoceles is discussed with him. No intervention is indicated. Recommend NSAIDs and warm compresses with pain. Not available 12/20/2024 20:00:43 Reason for Referral None Reported. Procedures Surgical History Date Name Laterality Status Provider Name and Address Organization Details Recorded Time Vasectomy completed RIGO CONDE MD [address] [place] [address], [address] [place] [address], [facility] 07/09/2024 14:16:44 vasectomy completed RIGO CONDE MD [address] [place] [address], [address] [place] [address], [facility] 12/20/2024 19:59:21 Wrist arthroscopy completed RIGO CONDE MD [address] [place] [address], [address] [place] [address] 06/28/2024 19:32:41 [place] Teeth Extraction completed RIGO CONDE MD [address] [place] [address], [address] [place] [address] 06/28/2024 19:32:52 Imaging Results None recorded. Procedure [...] Updated DateTime 12/20/2024 170.18 cm 37.6 kg/m2 237666.17 g Chloe Charles [facility] 12/20/2024 13:56:36 Date Recorded Body height Body mass index (BMI) Body weight Provider Name and Address Organization Details Last Updated DateTime 06/28/2024 170.18 cm 37.6 kg/m2 370839.17 g Chitra Arriaza [facility] 06/28/2024 09:17:45 Social History Question Answer Notes LastModified by Organizat ion Details LastModified Time Tobacco Smoking Status Current Every Day Smoker Chitra Arriaza [facility] 06/28/2024 09:18:43 What Is Your Relationship [...] Diagnosis SNOMED-CT Code Diagnosis ICD10 Code Diagnosis IMO Codes Diagnosis Note [id number] RIGO CONDE [facility] [address] [place] [address] 06/28/2024 09:01:44 06/28/2024 09:47:18 Male sterilization 458348618 Z30.2 [id number] RIGO CONDE MD SURGERY SCHEDULE [address] [place] [address] 07/09/2024 12:39:14 07/09/2024 12:39:51 Male sterilization 194617258 Z30.2 [id number] RIGO CONDE MD UROLOGY [facility] [address] [place] [address] 12/20/2024 13:37:52 12/20/2024 14:22:11 Male sterilization 669225841 Z30.2 Pain in testicle 7551804 9 N50.819 Spermatocele 22008405 N4 3.41 Health Concerns Section Related Observation LastModified by Organization Detai ls LastModified Time None Recorded Concern Status LastModified by Organization Details LastModified Time None Recorded Advance Directives Directive None Recorded Payers Insurance Date Sequence Insurance Name Policy Number Policy Nunez Covered Member ID Nunez Member ID Guarantor Name 12/20/2024 1 [place] [id number] 1 Kane Barboza [id number] Kane Barboza 06/28/2024 1 [facility] [id number] Kane Reddy Tamra [id number] Kane Reddy Tamra 12/20/2024 1 [place] [id number] 2 Meng Trevino Tamra [id number] Kane Reddy Tamra Notes Date Note Type Note Provider Name and Address Organization Details Recorded Time 06/28/2024 text/html Kane is a 23 yo male here today for Vasectomy Consultation. He has 3 children. He desires no future children with his s.o and is interested in permanent sterilization.He denies any scrotal or testicular problems RIGO CONDE MD [address] [place] [address], [address], [facility] 06/28/2024 19:33:59 12/20/2024 text/html Kane is a 24 yo male who returns 6 mos after vasectomy. He states he has right testicular pain that began 2 weeks ago after he was lifting an engine. It has hurt off and on since, but is improving. He has no urinary issues or concerns. RIGO CONDE MD [address] [place] [address] [place], [address], [facility] 12/20/2024 20:01:16
--- OUTSIDE RECORDS SUMMARY | 2025-10-14 11:02 | XMS_ITS ---
Author Organization Unknown ENCOUNTERS Encounter Performer Location Date Diagnosis Diagnosis Status Emergency [facility] 12[address] [facility] [address] [place] [id number] DANITA Pre Admit [facility] 12[address] [facility] [address] [place] [id number] Emergency [facility] 12[address] [facility] [address] [place] [id number] DANITA Pre Admit [facility] [address] [facility] [address] [place] [id number] Pre Admit [facility] 12[address] [facility] [address] [place] [id number] Emergency [facility] [address] [facility] [address] [place] [id number] DANITA Emergency [facility] [address] [facility] [address] [place] [id number] DANITA Emergency [facility] [address] [facility] [address] [place] [id number] DANITA Emergency [facility] [address] [facility] [address] [place] [id number] DANITA Emergency [facility] [address] [facility] [address] [place] [id number] DANITA Emergency [facility] [address] [facility] [address] [place] [id number] DANITA *Note: Encounters from your own facility or health system may be excluded. Allergies, Adverse Reactions, Alerts Allergen Type Severity Identification Date Medications Name Date Quantity Days Supplied GPI Number
[2025-10-14 12:21] LABS: Hematocrit 48.8 % (42.0-52.0); Hemoglobin 17.5 g/dL (14.1-18.0); Immature Granulocytes % 1.7 %; Mean Corpuscular HGB Conc 35.9 g/dL (31.8-35.4); Mean Corpuscular Hemoglobin 33.5 pg (27.0-31.2); Mean Corpuscular Volume 93.3 fl (80-94); Nucleated Red Blood Cells % 0 %; Platelet Count 282 K/mm3 (142-424); Red Blood Count 5.23 M/mm3 (4.60-6.20); Red Cell Distribution Width-SD 45.0 fL; White Blood Count 12.9 K/mm3 (4.8-10.8)
[2025-10-14 13:05] LABS: Alanine Aminotransferase 82 U/L (12-78); Albumin Level 4.9 g/dl (3.5-5.0); Albumin/Globulin Ratio 1.6 (1.1-1.8); Alkaline Phosphatase 89 U/L (38-126); Anion Gap 12.7 mEq/L (5-15); Aspartate Amino Transferase 65 U/L (17-59); Bilirubin,Total 1.0 mg/dl (0.2-1.3); Blood Urea Nitrogen 13 mg/dl (9-20); Calcium 9.7 mg/dl (8.4-10.2); Carbon Dioxide 28 mmol/L (22.0-30.0); Chloride 96 mmol/L (98-107); Cholesterol 185 mg/dl (140-200); Creatinine,Serum 0.80 mg/dl (0.66-1.25); Estimated Glomerular Filt Rate 116 ml/min (>60); GFR (African American) 140 ML/MIN (>60); Globulin 3.0 g/dL (1.3-3.2); Glucose 94 mg/dl (74-100); HDL Cholesterol 46 mg/dl (40-60); Potassium 4.7 mmoL/L (3.5-5.1); Sodium 132 mmol/L (136-145); Total Protein,Serum 7.9 g/dl (6.3-8.2); Triglycerides 321 mg/dl (30-150)
[2025-10-14 13:21] LABS: Free T4 (Free Thyroxine) 1.01 ng/dl (0.78-2.19)
[2025-10-14 13:36] LABS: Thyroid Stimulating Hormone 2.37 uIU/mL (0.465-4.68)
== END 2025-10-14 23:59 | disposition home or self-care (01) ==
LOC: LAB 11:00
PROVIDERS: PCP Physician Assistant; Visit Provider Physician Assistant
DX: E78.2 Mixed hyperlipidemia (principal); I10 Essential (primary) hypertension; E66.01 Morbid (severe) obesity due to excess calories
CPT/HCPCS: 36415; 80053; 80061; 84439; 84443; 85025